=== PATIENT | female | born 1975 | race Caucasian/White ===

== ENCOUNTER → 2021-02-24 11:12 | Outpatient (CLI) | payer OTHER, SELFPAY ==
--- NOTE | ~2021-02-24 | XR_ITS ---
XR lumbar spine min 4V DATE: 02/24/2021 11:31 INDICATION: Low back pain TECHNIQUE: AP, lateral, coned lateral lumbosacral and bilateral oblique views COMPARISON: None FINDINGS: Incidentally noted is an IUD overlying the pelvis. No fracture, spondylolysis, spondylolisthesis or bone destruction of the lumbar spine. There is mild to moderate degenerative disc disease at L3-4. The remaining lumbar and lumbosacral spa gala are well preserved. The sacroiliac joints appear normal. IMPRESSION: Mild/moderate degenerative disc disease at L3-4 Reviewed, dictated and finalized at location B.
== END ==
PROVIDERS: PCP Family Medicine; Visit Provider Family Medicine
DX: M54.5 Low back pain (principal); G89.29 Other chronic pain; M51.36 Other intervertebral disc degeneration, lumbar region
CPT/HCPCS: 72110

== ENCOUNTER → 2021-10-15 14:49 | Outpatient (CLI) | payer OTHER, SELFPAY ==
--- NOTE | ~2021-10-15 | MM_ITS ---
EXAMINATION: MM screening hero BI w pauline HISTORY: Screening mammogram TECHNIQUE: Craniocaudal and mediolateral oblique 3-D tomosynthesis images were obtained and synthetic 2-D images were generated. CAD analysis was submitted and interpreted. COMPARISON: 12/28/2018 bilateral screening mammogram BREAST PARENCHYMAL COMPOSITION: The breasts are heterogeneously dense, which may obscure small masses . FINDINGS: There is no evidence of suspicious mass, calcification, or architectural distortion to sugg est malignancy in either breast. There has been no suspicious interval change. IMPRESSION: 1. No mammographic evidence of malignancy. 2. Recommend routine screening mammography in one year. BI-RADS Category 1: Negative Reviewed, dictated and finalized at location A.
== END ==
PROVIDERS: Visit Provider Nurse Practitioner Obstetrics & Gynecology
DX: Z12.31 Encounter for screening mammogram for malignant neoplasm of breast (principal)
CPT/HCPCS: 77063; 77067

== ENCOUNTER → 2023-04-27 16:04 | Outpatient (CLI) | payer OTHER, SELFPAY ==
--- NOTE | ~2023-04-27 | MM_ITS ---
EXAMINATION: MM screening hero BI w pauline HISTORY: Screening mammogram TECHNIQUE: Craniocaudal and mediolateral oblique 3-D tomosynthesis images were obtained and synthetic 2-D images were generated. CAD analysis was submitted and interpreted. COMPARISON: 10/15/2021, 01/12/2019 BREAST PARENCHYMAL COMPOSITION:The breasts are heterogeneously dense, which may obscure small masses. FINDINGS: No suspicious mass, calcification, or architectural distortion are identified in either al ast to suggest malignancy. There has been no suspicious interval change. IMPRESSION: No mammographic evidence of malignancy. Recommend routine screening mammography in one year. BI-RADS Category 1: Negative Reviewed, dictated and finalized at location .
== END ==
PROVIDERS: PCP Nurse Practitioner Obstetrics & Gynecology; Visit Provider Nurse Practitioner Obstetrics & Gynecology
DX: Z12.31 Encounter for screening mammogram for malignant neoplasm of breast (principal)
CPT/HCPCS: 77063; 77067

== ENCOUNTER 2024-05-01 15:22 | Outpatient (CLI) | payer OTHER, SELFPAY ==
--- NOTE | ~2024-05-01 | MM_ITS ---
EXAMINATION: MM screening hero BI w pauline HISTORY: Screening TECHNIQUE: Craniocaudal and mediolateral oblique 3-D tomosynthesis images were obtained and synthetic 2-D images were generated. CAD analysis was submitted and interpreted. COMPARISON: Comparison to multiple prior studies sequentially, with oldest reviewed study dated 10/15. BREAST PARENCHYMAL COMPOSITION: Not dense: There are scattered areas of fibroglandular density. FINDINGS: There is no evidence of suspicious mass, calcification, or architectural distortion to sugg est malignancy in either breast. There has been no suspicious interval change. IMPRESSION: 1. No mammographic evidence of malignancy. 2. Recommend routine screening mammography in one year. BI-RADS Category 1: Negative. Reviewed, dictated and finalized at location B.
== END 2024-05-01 15:23 | disposition home or self-care (01) ==
PROVIDERS: PCP Obstetrics & Gynecology; Visit Provider Obstetrics & Gynecology
DX: Z12.31 Encounter for screening mammogram for malignant neoplasm of breast (principal)
CPT/HCPCS: 77063; 77067

== ENCOUNTER 2024-09-11 01:43 | Day surgery (SDC) | payer OTHER, SELFPAY ==
[2024-08-25 15:02] VITALS: BMI 28.4
--- OUTSIDE RECORDS SUMMARY | 2024-09-11 01:46 | XMS_ITS | Clinical Summary ---
Author Organization [facility] Address [address] [place] [address] Care Team Providers Care Patient Transporter Name Role Phone Favio Stafford MD Primary Care Provider [phone] Source Comments [facility],non-owned Affiliates and Associated Physician Practices is amultiple site organization consisting of ambulatory clinics and hospital sitesin [place], [place], [place] and [place]. This disclosure is being madepursuant to the Care Everywhere program and may not contain all information available regarding this patient. Last updated 18.[facility] Allergies Active Allergy Reactions Criticality Noted Date Comments Penicillins Rash Medium 10/04/2018 Medications * Be aware that medications may not be up to date on this document. Alwaysverify current medications with the patient. Medication Sig Dispensed Refills Start Date End Date Status HYDRALAZINE HCL PO Active LEVOTHYROXINE SODIUM PO A ctive ATORVASTATIN CALCIUM PO A ctive Nebivolol HCl (BYSTOLIC PO) Active LOSARTAN POTASSIUM PO Act jae Social History Tobacco Use Types Packs/Day Years Used Date Smoking Tobacco: Never Smokeless Tobacco: Never Tobacco Cessation:Counseling Given: Yes Sex and Gender Information Value Date Recorded Sex Assigned at Not on file Gender Identity Not on file Sexual Orientation Not on file Last Filed Vital Signs Vital Sign Reading Time Taken Comments Blood Pressure 134/78 10/04/2018 12:06 PM CDT Pulse 61 10/04/2018 12:06 PM CDT Temperature 36.7 C (98.1 F) 10/04/2018 12:06 PM CDT Respiratory Rate 16 10/04/2018 12:06 PM CDT Oxygen Saturation 98% 10/04/2018 12:06 PM CDT Inhaled Oxygen Concentration - - Weight 74.8 kg (165 lb) 10/04/2018 12:06 PM CDT Height 167.6 cm (5' 6 ) 10/04/2018 12:06 PM CDT Body Mass Index 26.63 10/04/2018 12:06 PM CDT Plan of Treatment Health Maintenance Due Date Last Done Comments COLOGUARD (AGES 45-75) - COL ON CA SCREENING 1974 COLON MONITORING 1974 COLONOSCOPY - COLON CA SCREENING 1974 CT COLONOGRAPHY - COLON CA SCREENING 1974 Colorectal Cancer Screening 1974 FIT - COLON CA SCREENING 1974 FLEX SIG - COLON CA SCREENING 1974 MAMMOGRAM 1974 PAP SMEAR 1974 HIV SCREENING 1989 HEPATITIS C SCREENING 05/23/1992 DTAP/TDAP/TD VACCINES (1 - Tdap) 1993 HEPATITIS B VACCINE (1 of 3 - 19+ 3-dose series) 1993 SCREENING FOR DIABETES 10/04/2018 COVID-19 VACCINE (1 - 2023-2 5 season) 2024 INFLUENZA VACCINE (#1) 2024 PNEUMOCOCCAL VACCINE 50+ (1 of 1 - PCV) 2024 ZOSTER VACCINE (1 of 2) 2024 DEPRESSION SCREENING 07/26/2024 HIB VACCINE Aged Out No longer eligi ble based on patient's age to complete this topic HPV VACCINE Aged Out No longer eligi ble based on patient's age to complete this topic MENINGOCOCCAL (Group B) VACCINE Aged Out No longer eligible based on patient's age to complete this topic MENINGOCOCCAL VACCINE Aged Out No alcides [place] eligible based on patient's age to complete this topic PNEUMOCOCCAL VACCINE Aged Out No long er eligible based on patient's age to complete this topic Care Teams Patient Transporter Relationship Specialty Start Date End Date Favio Stafford MD PCP - General Family Medicine 10/04/18
--- OUTSIDE RECORDS SUMMARY | 2024-09-11 01:46 | XMS_ITS | Clinical Summary ---
Author Organization [facility] Address [address] [place] [address] Care Team Providers Care Preparer Making Department Name Role Phone Favio Stafford MD Primary Care Provider [phone] Barb Quinn OT Unavailable [phone] Nabor Mccormack PT Unavailable Unavailable Carlyn Guaman PT Unavailable Unavailable Myra Anderson PT Unavailable UnavailTeena Gifford OT Unavailable Unavailable Bernadette Montiel OT Unavailable Unavailable Júnior Drummond MD Unavailable [phone] Brown Chaudhary MD Unavailable [phone] Allergies Active Allergy Reactions Criticality Noted Date Comments Hydrochlorothiazide Hives Medium 07/27/2017 Amlodipine Rash,Cough Medium 01/20/2018 Penicillins Rash Reaction: Rash, , Medications levothyroxine (SYNTHROID) 112 mcg tabletIndicatio ns:hypothyroidi sm Take 1 tablet (112 mcg total) by mouth daily 8 Active zolpidem (AMBIEN) 10 mg tabletIndicatio ns:Sleep-Onset Insomnia Take 1 tablet (10 mg total) by mouth nightly as needed 5 8 Active biotin 5 mg capsuleIndicati ons:Biotin Deficiency Take 1 capsule (1 tablet total) by mouth daily Active L-THREONINE MISC Active aspirin 81 mg chewable tabletIndicatio ns:acute myocardial infarction Take 1 tablet (81 mg total) by mouth daily 3 07/30/19 28 Active Additional Information Patient taking differently:81 mg oral2 times weekly, Indications: acute myocardial infarction, Reported on 08/11/2024 hydrALAZINE (APRESOLINE) 100 mg tablet TAKE 1 TABLET THREE TIMES A DAY 270 tablet 3 4 Active MAGNESIUM GLYCINATE ORAL Take 400 mg by mouth nightly as needed Patients reported, for sleeping Active nebivoloL (BYSTOLIC) 10 mg tablet TAKE 1 TABLET TWICE A DAY 180 tablet 3 4 Active losartan (COZAAR) 100 mg tablet TAKE 1 TABLET DAILY 90 tablet 3 4 Active atorvastatin (LIPITOR) 20 mg tablet TAKE 1 TABLET DAILY (DOSE INCREASE) 90 tablet 3 4 Active Active Problems Problem Noted Date Diagnosed Date H/O ascending aortic replacement 08/11/2024 Headache disorder 11/25/2023 Assessment & Plan (11/25/2023 1:25 PM CDT): Susie reports a longstanding daily dull headache that can wax and wane in severity throughout the day complicated by chronic fdrg-jud-vjppxcj analgesic use. She denies any migrainous associated symptoms. She denies any previous or current preventative therapies, she would like to avoid medication if possible. Acutely, the patient takes Tylenol multiple times throughout the week. This will temporarily reduce her pain. Patient's specific headache risk factors include disrupted sleep pattern, stress, eye strain, significant cardiovascular history and elevated blood pressures. Plan: Headache diary. Prednisone burst to break current rebound headache. Advised cessation of dikk-qgs-eymksul analgesic use. Discussed supplements to help reduce headache pattern including migrelief. Encouraged adequate water intake, regular exercise, healthy diet, and limiting caffeine intake. Consider massage and acupuncture to help reduce headache pattern. Encouraged adequate blood pressure control. Follow up in 3-4 months. History of CVA (cerebrovascular accident) 2023 Assessment & Plan (11/25/2023 1:25 PM CDT): Susie had an embolic stroke in 2018 during hospitalization for endocarditis. Her symptoms initially consisted of left-sided weakness, poor balance, right vision loss, and speech difficulty. She has made a remarkable recovery but still notes some residual forgetfulness, difficulty with focus, and delayed processing. We reviewed her imaging and workup during her hospitalization, she denies any previous neurology care. 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 She lives an active and healthy lifestyle. She is compliant with her antiplatelet and statin therapy. She does have elevated blood pressures, we discussed findings of possible fibromuscular dysplasia on recent CTA of head and neck. She is seen by a atmospheric scientist. Plan: Continue antiplatelet and statin therapy for secondary stroke prevention. Discussed further workup for blood pressures and fibromuscular dysplasia including vascular or nephrology, patient deferred further workup at this time. Follow up as needed. Aftercare following surgery of the circulatory s ystem 09/10/2022 Stenosis of aorta 07/09/2022 Chest pain 06/06/2022 Assessment & Plan (06/06/2022 3:19 PM SITE SAFETY MANAGER): He had a rather worrisome episode of excruciating chest pain last month. She had been at her usual workout when she developed pain in the neck and left arm that was quite severe. It lasted 10 minutes and then resolved. She is had a follow-up echocardiogram and CT angiogram without significant changes. The symptoms did not sound ischemic, and she is certainly worked out heart since that time without recurrent chest pain. She does have a follow-up visit with Dr. Chaudhary planned, but will try to move it up to get his opinion as well. PFO (patent foramen ovale) 06/02/2022 Assessment & Plan (01/13/2024 3:33 PM CDT): Prior PFO closure in 2018. Assessment & Plan (01/01/2023 11:15 AM CDT): Not an issue at this time. Had PFO closure in 2018. Assessment & Plan (09/27/2022 6:34 PM SITE SAFETY MANAGER): Not an issue at this time. Assessment & Plan (06/06/2022 3:21 PM SITE SAFETY MANAGER): No symptoms. Closed. COVID-19 virus infection 11/20/2019 Cough 11/17/2019 Assessment & Plan (11/17/2019 2:36 PM CDT): COVID +PCR viral panel on chest x-ray. Gvxq-lgq-duyydip DayQuil or Mucinex for supportive care. Monitor daily temperatures. Discussed that if her chest x-rays questionable at antibiotics & if her testing is + will add her to the COVID -19 home monitoring. Aftercare following surgery 01/20/2018 Meningitis 11/26/2017 Bacteremia 11/26/2017 Hypothyroidism 11/26/2017 Normocytic anemia 11/26/2017 Thoracic aortic aneurysm without rupture 016 Overview (10/31/2016): Thoracic aortic aneurysm without rupture S/P AVR (aortic valve replacement) and aortoplas ty 07/03/2015 Overview (10/29/2016): S/P AVR Assessment & Plan (01/13/2024 3:32 PM CDT): Overall, doing very well. She is aware of uses endocarditis prophylaxis. We again reviewed her CT images of her aorta. Assessment & Plan (01/01/2023 11:13 AM CDT): Reviewed last CT images with patient. BP control will be important. She has FU CT and Dr Chaudhary appt in Jul 2023. She is aware of and uses SBE prophylaxis. Assessment & Plan (09/27/2022 6:33 PM SITE SAFETY MANAGER): He is doing remarkably well after her 3rd heart operation in June 2022. She is currently exercising fairly vigorously at home, including some punching bag workout (kickboxing). We discussed exercise principles in patients with aortic disease in the fact that she should avoid intense isometric activities, such as punching bag. We told her to emphasize cardio workouts instead. She knows to limit her activities for at least 6 months post surgery but thereafter as well. Assessment & Plan (06/06/2022 3:20 PM SITE SAFETY MANAGER): Her AVR has been normal on recent echocardiograms. She does have rather significant angulation in the ascending aorta as well as a loud murmur. We did also measure higher velocities in this region with Doppler. She is aware of an uses endocarditis prophylaxis as indicated. Aortic valve insufficiency 06/27/2014 Overview (10/29/2016): Aortic regurgitation Hyperlipidemia LDL goal <100 07/11/2013 Overview (10/29/2016): Hyperlipidemia Assessment & Plan (01/13/2024 3:32 PM CDT): The LDL is well controlled on current pharmacotherapy which will be continued. Assessment & Plan (01/01/2023 11:09 AM CDT): The blood pressure has been under good control on current medications which will be continued. The patient is aware of the need for continued monitoring. Monitor home BP/Keep diary and bring to OV. Call if average BP >140/90 mmHg. Low sodium diet. Assessment & Plan (09/27/2022 6:33 PM SITE SAFETY MANAGER): Her LDL has been at goal on Lipitor which he will continue. Assessment & Plan (06/06/2022 3:20 PM SITE SAFETY MANAGER): Her LDL has been at goal on atorvastatin which she will continue. Essential hypertension 07/11/2013 Overview (10/29/2016): Hypertension Assessment & Plan (01/13/2024 3:33 PM CDT): The blood pressure has been under good control on current medications which will be continued. The patient is aware of the need for continued monitoring. Monitor home BP/Keep diary and bring to OV. Call if average BP >140/90 mmHg. Low sodium diet. Her blood pressures actually been well controlled. We will try to cardio hydralazine down to 100 mg twice daily. Assessment & Plan (01/01/2023 11:08 AM CDT): Some OCONNOR attributed to Micardis. Will switch back to losartan 100 mg every day. The blood pressure has been under good control on current medications which will be continued. The patient is aware of the need for continued monitoring. Monitor home BP/Keep diary and bring to OV. Call if average BP >140/90 mmHg. Low sodium diet. Assessment & Plan (09/27/2022 6:33 PM SITE SAFETY MANAGER): Her blood pressures been under good control with nebivolol, Micardis, and hydralazine. The patient is aware of the need for continued monitoring. Monitor home BP/Keep diary and bring to OV. Call if average BP >140/90 mmHg. Low sodium diet. Assessment & Plan (06/06/2022 3:22 PM SITE SAFETY MANAGER): Her blood pressures been under reasonably good control on current medications, including a beta-megan, ARB, and hydralazine, which she will continue. We will add low-dose diuretic in the form of HCTZ 12.5 mg daily to her regimen. The patient is aware of the need for continued monitoring. Monitor home BP/Keep diary and bring to OV. Call if average BP >140/90 mmHg. Low sodium diet. H/O aortic root repair 08/09/2012 Overview (10/29/2016): Hx of aortic valve replacement Aortic root dilatation (CMS/HCC) 08/08/2012 Overview (10/28/2016): Dilated aortic root Coronary arteriosclerosis in [place] artery 08/08 Overview (10/29/2016): CAD in [place] artery Endocarditis of aortic valve Intracranial hemorrhage Encounters Date Type Department Care Team Description 08/11/2024 9:30 AM SITE SAFETY MANAGER Telemedicine Cardiovascular and Thoracic Surgery [address] [facility] [address] [place] [address] Raisa Hurt NP S/P AVR (aortic valve replacement) and aortoplasty (Primary Dx); H/O ascending aortic replacement; H/O aortic root repair 07/27/2024 11:33 AM SITE SAFETY MANAGER - 07/27/2024 11:59 PM SITE SAFETY MANAGER Hospital Encounter [facility] - Imaging [address] [place] [address] S/P AVR (aortic valve replacement) and aortoplasty; S/P ascending aortic aneurysm repair; 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 (HCC); Status post combined aortic root and valve replacement using stentless bioprosthetic aortic valve Discharge Disposition: Discharge to home or self care from Last 3 Months Surgical History Surgery Date Site/Laterality Comments OTHER SURGICAL HISTORY 07/26/2009 - 07/25/2010 : Valve Replacement OTHER SURGICAL HISTORY aortic regurgitation, aneurysm of ascending aortic: replacement of ascending aorta and AVR allograft CARDIAC CATHETERIZATION CARDIAC VALVE REPLACEMENT 11/26/2017 AORTIC VALVE REPLACEMENT 07/26/2017 - 07/25/2018 redo AVR AORTIC VALVE REPLACEMENT 07/26/2009 - 07/25/2010 AORTIC VALVE SURGERY 07/29/2022 redo redo hemiarch and ascending replacements Medical History Medical History Date Comments Hypertension Hypertension Cardiovascular disease Coronary Artery Disease Hyperlipidemia Hyperlipidemia Heart valve disease Cardiac valv ular disease Hx Other Medical aortic regurgit ation, aneurysm of ascending aorti; Comments: NJN 06/27/2014 - Endocarditis Heart disease Stroke (HCC) Dec 06 2017 Family History Medical History Relation Name Comments Hypertension Father Stewart Thomas Hypertension; / Hypertension; Other Maternal Grandmother Pseudoa neurysm; Cause of : Pseudoaneurysm Hypertension Mother Baljinder Coburn Hypertension; Hypertension Mother's Sister 2 Mac Papa Sudden Mother's Sister 2 Mac Papa Sudden Eliza th; Relation Name Status Comments Father Stewart Thomas Alive Maternal Grandmother Mother Baljinder Coburn Alive Mother's Sister 1 Alive Mother's Sister 2 Mac Papa Social History Tobacco Use Types Packs/Day Years Used Date Smoking Tobacco: Never Cigarettes Smokeless Tobacco: Never Tobacco Cessation:Counseling Given: Not Answered Alcohol Use Standard Drinks/Week Comments Yes 0 (1 standard drink = 0.6 oz pur e alcohol) OASIS D0700: Social Isolation Answer Da te Recorded Frequency of experiencing loneliness or isolatio n Never 08/06/2022 Social Connection and Isolat ion Panel [NHANES] Answer Date Recorded In a typical week, how many times do you talk on the phone with family, friends, or neighbors? More than three times a week 08/03/2022 How often do you get togethe r with friends or relatives? More than three times a week 08/03/2022 How often do you attend [facility] or mandaen services? 1 to 4 times per year 08/03/2022 Do you belong to any clubs o r organizations such as advent groups, unions, fraternal or athletic groups, or school groups? Yes 08/03/2022 How often do you attend meet ings of the clubs or organizations you belong to? 1 to 4 times per year 08/03/2022 Are you , , di vorced, , never , or living with a partner? 08/03/2022 AUDIT-C Answer Date Recorded Q1: How often do you have a drink containing alc ohol? Monthly or less 11/24/2023 Average Number of Drinks Not on file 024 Frequency of Binge Drinking Not on file 07/2023 Overall Financial Resource Strain (CARDIA) Answe r Date Recorded How hard is it for you to pa y for the very basics like food, housing, medical care, and heating? Not very hard 08/03/2022 Hunger Vital Sign Answer Date Recorded Within the past 12 months, y ou worried that your food would run out before you got the money to buy more. Never true 08/03/19 23 Within the past 12 months, t he food you bought just didn't last and you didn't have money to get more. Never true 08/03/2022 PRAPARE - Transportation Answer Date Re corded In the past 12 months, has l ack of transportation kept you from medical appointments or from getting medications? No 03/2023 In the past 12 months, has l ack of transportation kept you from meetings, work, or from getting things needed for daily living? 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 Not on file Not on file Not on file Obstetrics History Last Filed Vital Signs Vital Sign Reading Time Taken Comments Blood Pressure 136/76 01/07/2024 11:35 AM CDT Pulse 59 01/07/2024 11:35 AM CDT Temperature 36.1 C (97 F) 09/09/2022 9:23 AM SITE SAFETY MANAGER Respiratory Rate 16 11/24/2023 12:39 PM CDT Oxygen Saturation 98% 01/07/2024 11:35 AM CDT Inhaled Oxygen Concentration - - Weight 78.9 kg (174 lb) 01/07/2024 11:35 AM CDT Height 167.6 cm (5' 6 ) 01/07/2024 11:35 AM CDT Body Mass Index 28.08 01/07/2024 11:35 AM CDT Plan of Treatment Health Maintenance Due Date Last Done Comments Cervical Cancer Screening 1974 Colon Cancer Screening-Colonoscopy 1974 Depression Screening 1974 Hepatitis C Screening 1974 DTaP/Tdap/Td Vaccine (1 - Tdap) 1985 Hepatitis B Screening 1992 Regular Well Visit/Exam 18-64 1992 Covid-19 Vaccine (3 - 2023-2 5 season) 2024 10/12/2020, 09/14/2020 Influenza Vaccine (#1) 2024 Breast Cancer Screening-Mammogram 04/28/2024 04/28/2023, 10/15/2021 Zoster Vaccine (1 of 2) 2024 Pneumococcal vaccine <65 Aged Out No longer eligible based on patient's age to complete this topic Medical Devices Implanted Type Area Tobacco Sample Puller Device Identifier Shelf Expiration Date Model / Serial / Lot Graft Cardiovascular Gelweave Valsalva Gelatin Hydrogel L24 Mm Od28 Mm Thoracic Aorta Woven - [id number] - [id number] Implanted:Qty: 1 on 11/26/2017 by Brown Chaudhary MD at [facility] Graft N/A: Aorta Vascutek Terumo 09/22/2020 [id number] P / [id number] / [id number] Terumo Cardio Vascular Gelweave Od6 Mm L30 Cm Suture Retention Unique Hydrolyzable Abdomen Thorax Straight Graft Cardiovascular Gelatin Polyester Woven [id number] - [id number] - [id number] Implanted:Qty: 1 on 07/29/2022 by Brown Chaudhary MD at [facility] Graft Right: Axillary Artery Terumo Cardio Vascular 02/22/2025 [id number] / [id number] / [id number] Description:Right axillary c annulation. Terumo Cardio Vascular Gelweave 28mm 30cm Suture Retention Unique Hydrolyzable Abdomen [id number] - [id number] - [id number] Implanted:Qty: 1 on 07/29/2022 by Brown Chaudhary MD at [facility] Graft N/A: Aorta Terumo Cardio Vascular 12/23/2024 [id number] / [id number] / [id number] Valve Aortic Maegan s Perimount Magna Ease Pericardial Low Profile Od25 Mm Bioprosthesis Thermafix Process Stent Base Aortotomy Closure - [id number] - [id number] Implanted:Qty: 1 on 11/26/2017 by Brown Chaudhary MD at [facility] Prosthetic Valve N/A: Aortic Valve Adam Lifesciences 09/01/2021 [id number] 5MM / [id number] / [employer] Device Closure Fibertape Sternal Cerclage Blunt Needle Ar-[id number] - Sn/A - [id number] Implanted:Qty: 1 on 07/29/2022 by Brown Chaudhary MD at [facility] Wire N/A: Sternum Ar[employer]rex Inc 04/24/2027 [id number] / N/A / [id number] Wire Pacing Luis Angel/Wire Ricardo Stainless Steel 2-0 26 Mm 1/2 [place] Curve L61 Cm L89 Mm Intramyocardial Ventricle M25 Style Temporary Snap Off Needle [facility] - [id number] Implanted:Qty: 1 on 11/26/2017 by Brown Chaudhary MD at [facility] [employer] Sergei [id number] / / Wire Pacing Luis Angel/Wire Ricardo Stainless Steel 2-0 26 Mm 1/2 [place] Curve L61 Cm L89 Mm Intramyocardial Ventricle M25 Style Temporary Snap Off Needle [place] [facility] - [id number] Implanted:Qty: 1 on 11/26/2017 by Brown Chaudhary MD at [facility] [employer] [id number] / / Explanted Type Area Tobacco Sample Puller Device Identifier Shelf Expiration Date Model / Serial / Lot [place] [employer] Horizon Ligate Triangulate Cross Section Wire Large Chevron Heart Latex Free [id number] - Sn/A - [id number] Explanted:Qty: 1 on 07/29/2022 by Brown Chaudhary MD at [facility] Clip Right: Sternum [employer] [id number] / N/A / [employer] Weck Horizon 6 Cartridge Ligate Triangulate Cross Section Heart [id number] - Sn/A - [id number] Explanted:Qty: 1 on 07/29/2022 by Brown Chaudhary MD at [facility] Clip Right: Sternum [employer] Inc [id number] / N/A / Procedures Procedure Name Priority Date/Time Associated Diagnosis Comments CTA CHEST ABDOMEN PELVIS Schedule Routine, Read Routine (OP Routine) 07/27/2024 12:36 PM SITE SAFETY MANAGER S/P AVR (aortic valve replacement) and aortoplasty S/P ascending aortic aneurysm repair 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 Electronically signed by: iVrgil Mims M.D. Narrative 07/27/2024 1:15 PM SITE SAFETY MANAGER EXAMINATION: CTA CHEST ABDOMEN PELVIS HISTORY: Status post aortic valve and aortic root replacement with repeat ascending aorta and susan-arch replacement 07/29/2022. TECHNIQUE: CT angiography of the chest was performed prior to and following the uneventful intravenous administration of 94 ml Optiray-350. Vascular 3D images were generated on a dedicated workstation and also interpreted. COMPARISON: CTA chest dated 08/06/2023 FINDINGS: VASCULAR FINDINGS: Postsurgical changes of median sternotomy for aortic valve replacement and ascending aorta and susan-arch repair. There is unchanged soft tissue surrounding the aortic graft compatible with postsurgical change. No fluid collection. No pseudoaneurysm. No aortic dissection. Aortic measurements: Sinotubular junction: 3.2 x 3.4 cm Maximum ascending aortic diameter at the level of the main pulmonary artery: 3.1 x 3.3 cm Proximal descending thoracic aorta: 2.3 x 2.4 cm NON-VASCULAR FINDINGS: Lungs are clear. No pneumothorax or pleural effusion. No supraclavicular, axillary, mediastinal or hilar lymphadenopathy. Unchanged mild cardiomegaly. No pericardial effusion. Imaged upper abdomen demonstrates a punctate nonobstructive left renal stone. No suspicious osseous lesion Procedure Note Virgil Mims MD - 07/27/2024 EXAMINATION: CTA CHEST ABDOMEN PELVIS HISTORY: Status post aortic valve and aortic root replacement with repeat ascending aorta and susan-arch replacement 07/29/2022. TECHNIQUE: CT angiography of the chest was performed prior to and following the uneventful intravenous administration of 94 ml Optiray-350. Vascular 3D images were generated on a dedicated workstation and also interpreted. COMPARISON: CTA chest dated 08/06/2023 FINDINGS: VASCULAR FINDINGS: Postsurgical changes of median sternotomy for aortic valve replacement and ascending aorta and susan-arch repair. There is unchanged soft tissue surrounding the aortic graft compatible with postsurgical change. No fluid collection. No pseudoaneurysm. No aortic dissection. Aortic measurements: Sinotubular junction: 3.2 x 3.4 cm Maximum ascending aortic diameter at the level of the main pulmonary artery: 3.1 x 3.3 cm Proximal descending thoracic aorta: 2.3 x 2.4 cm NON-VASCULAR FINDINGS: Lungs are clear. No pneumothorax or pleural effusion. No supraclavicular, axillary, mediastinal or hilar lymphadenopathy. Unchanged mild cardiomegaly. No pericardial effusion. Imaged upper abdomen demonstrates a punctate nonobstructive left renal stone. No suspicious osseous lesion IMPRESSION: Stable postsurgical changes of aortic valve replacement with ascending aorta and susan-arch repair. Electronically signed by: Virgil Mims M.D. Raisa Hurt NP IMG CT PROCEDURES Final R esult from Last 3 Months Insurance CHOICE PLUS [facility] CHOICE PLUS R [facility] CHOICE PLUS [facility]AN [facility] HMO/PPO Address: [address] [place] [address] Advance Directives For more information, please contact: [phone] * Full Code (Latest Code Status on File) Date Activated Date Inactivated Comments 07/29/2022 5:01 PM 08/04/2022 10:12 PM * Full Code Date Activated Date Inactivated Comments 01/04/2018 10:09 PM 07/29/2022 5:59 AM * Full Code Date Activated Date Inactivated Comments 12/08/2017 5:52 PM 01/01/2018 10:45 AM * Full Code Date Activated Date Inactivated Comments 11/26/2017 10:36 PM 12/08/2017 5:19 PM * Full Code Date Activated Date Inactivated Comments 11/25/2017 9:18 PM 11/26/2017 10:36 PM Care Teams Preparer Making Department Relationship Specialty Start Date End Date Favio Stafford MD [address] [address] PCP - General 06/28/13 Barb Quinn, OT [address] [facility] [address] [place] [address] Occupational Therapist Occupational Therapy 01/11/18 Nabor Mccormack, PT Physical Therapist Physical Therapy 01/11/18 Carlyn Guaman, PT Physical Therapist Physical Therapy 01/21/18 Myra Anderson, PT Physical Therapist Physical Therapy 01/25/18 Teena Lombardi, OT Occupational Therapist Occupational Therapy 02/10/18 Bernadette Montiel, OT Occupational Therapist Occupational Therapy 02/14/18 Júnior Drummond MD [address] [place] [address] Referring Physician Cardiology 06/29/23 Brown Chaudhary MD [address] [place] [address] Consulting Physician Cardiothoracic Surgery 06/29/23
--- OUTSIDE RECORDS SUMMARY | 2024-09-11 01:46 | XMS_ITS | Encounter Summary ---
Author Organization [facility] Address [address] [place] [address] Care Team Providers Care Tombstone Erector Helper Name Role Phone Favio Stafford MD Primary Care Provider [phone] Encounter Details Date Type Department Care Team (Late st Contact Info) Description 10/29/2021 Lab Requisition [facility] [address] [facility] [place] [address] Emma Howard DO [address] [facility] [address] [place] [address] Social History Tobacco Use Types Packs/Day Years Used Date Smoking Tobacco: Never Smokeless Tobacco: Never Sex and Gender Information Value Date Recorded Sex Assigned at Not on file Gender Identity Not on file Sexual Orientation Not on file documented as of this encounter Plan of Treatment Not on file documented as of this encounter Procedures Procedure Name Priority Date/Time Associated Diagnosis Comments DERMATOPATHOLOGY Routine 10/29/2021 12:0 0 AM CDT documented in this encounter Results * DERMATOPATHOLOGY (10/29/2021 12:00 AM CDT) Case Report Dermatopathology Report Case: [id number] Authorizing Provider: Emma Howard DO Collected: 10/29/2021 12:00 AM Ordering Location: [facility] Received: 10/29/2021 03:55 PM Pathologist: Fahad Morocho MD Specimens: A) - Skin, left superior back B) - Skin, left inferior back 10:12 AM [facility] Final Diagnosis Specimen A. SKIN, left superior back: INTRADERMAL MELANOCYTIC NEVUS (D22.5) Specimen B. SKIN, left inferior back: INTRADERMAL MELANOCYTIC NEVUS (D22.5) 10:12 AM [facility]MAT[facility] Clinical History A-B: Nevus, irritated. 10:12 AM T DERMATOPATHOLOGY LABORATORY Gross Description Specimen A: Received is one formalin filled container labeled with the patient's name and designated left superior back. The specimen consists of a shave biopsy measuring [id number]. Jar 0. Specimen B: Received is one formalin filled container labeled with the patient's name and designated left inferior back. The specimen consists of a shave biopsy measuring [id number]. Jar 0. 10:12 AM [facility] DERMATOPATHOLOGY [facility]ORATORY Microscopic Description Specimen A. SKIN, left superior back: There are nests of cytologically bland melanocytes within the dermis that mature with depth. Specimen B. SKIN, left inferior back: There are nests of cytologically bland melanocytes within the dermis that mature with depth. 10:12 AM [facility] DERMAT[facility]ATH[facility]ORATORY Disclaimer An external and internal positive and negative controls are appropriate for the histochemical, immunohistochemical and immunofluorescence stain(s) in this case (if any), except where stated explicitly. The performance characteristics of the stain(s) cited in this report were developed and its performance characteristic determined by the Dermatopathology Laboratory at [facility], directed by Dr. Lloyd Morocho. These tests need not be, and therefore are not, approved by the [place] Food and Drug Administration. The tests are used for clinical purposes. Billing Codes Specimen Charges Stain Charges 83735 66143 1 1 2 10:12 AM CDT DERMATOPATHOLOGY LABORATORY Embedded Images 10:12 AM T DERMATOPATHOLOGY LABORATORY Pathology/Cytology TISSUE SPECIMEN FROM SKIN / Unknown 10/29/2021 10/29/2021 3:55 PM CDT Miscellaneous samples (specimen) TISSUE SPECIMEN FROM SKIN / Unknown 10/29/2021 10/29/2021 3:55 PM CDT Emma Howard DO LAB - PATHOLOGY/C YTOLOGY ORDERABLES DERMATOPATHOLOGY LABORATORY [facility] - Department of Dermatology [facility] [address] [place] [address], [address] [phone] documented in this encounter Visit Diagnoses Not on filedocumented in this encounter Care Teams Tombstone Erector Helper Relationship Specialty Start Date End Date Favio Stafford MD PCP - General Family Medicine 10/04/18 documented as of this encounter
--- OUTSIDE RECORDS SUMMARY | 2024-09-11 01:46 | XMS_ITS | Referral Summary ---
Author Organization [facility] Address [facility] [place] [address] Care Team Providers Care Accounts Payable Representative Name Role Phone Favio Stafford MD Primary Care Provider [phone] Barb Quinn OT Unavailable [phone] Nabor Mccormack PT Unavailable Unavailable Carlyn Guaman PT Unavailable Unavailable Myra Anderson PT Unavailable UnavailTeena Gifford OT Unavailable Unavailable Bernadette Montiel OT Unavailable Unavailable Júnior Drummond MD Unavailable [phone] Brown Chaudhary MD Unavailable [phone] Encounters Date Type Department Care Team Description 08/11/2024 9:30 AM INTERNET ARCHITECT Telemedicine Cardiovascular and Thoracic Surgery [address] [facility] [address] [place] [address] Raisa Hurt NP S/P AVR (aortic valve replacement) and aortoplasty (Primary Dx); H/O ascending aortic replacement; H/O aortic root repair 07/27/2024 11:33 AM INTERNET ARCHITECT - 07/27/2024 11:59 PM INTERNET ARCHITECT Hospital Encounter [facility] [address] [place] [address] S/P AVR (aortic valve replacement) and aortoplasty; S/P ascending aortic aneurysm repair; 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 She denies any migrainous associated [...] break current rebound headache. Advised cessation of ifql-smv-qfharvx analgesic use. Discussed supplements to help reduce [...] and neck. She is seen by a manager java. Plan: Continue antiplatelet and statin therapy for secondary stroke prevention. Discussed further workup for blood pressures and fibromuscular dysplasia including vascular or nephrology, patient deferred further workup at this time. Follow up as needed. Aftercare following surgery of the circulatory s ystem 09/10/2022 Stenosis of aorta 07/09/2022 Chest pain 06/06/2022 Assessment & Plan (06/06/2022 3:19 PM INTERNET ARCHITECT): He had a rather worrisome episode of [...] 2018. Assessment & Plan (09/27/2022 6:34 PM INTERNET ARCHITECT): Not an issue at this time. Assessment & Plan (06/06/2022 3:21 PM INTERNET ARCHITECT): No symptoms. Closed. COVID-19 virus infection 11/20/2019 Cough 11/17/2019 Assessment & Plan (11/17/2019 2:36 PM CDT): COVID +PCR viral panel on chest x-ray. Laaq-rui-pxtloyr DayQuil or Mucinex for supportive care. Monitor [...] prophylaxis. Assessment & Plan (09/27/2022 6:33 PM INTERNET ARCHITECT): He is doing remarkably well after her [...] well. Assessment & Plan (06/06/2022 3:20 PM INTERNET ARCHITECT): Her AVR has been normal on recent [...] diet. Assessment & Plan (09/27/2022 6:33 PM INTERNET ARCHITECT): Her LDL has been at goal on Lipitor which he will continue. Assessment & Plan (06/06/2022 3:20 PM INTERNET ARCHITECT): Her LDL has been at goal on [...] diet. Assessment & Plan (09/27/2022 6:33 PM INTERNET ARCHITECT): Her blood pressures been under good control with nebivolol, Micardis, and hydralazine. The patient is aware of the need for continued monitoring. Monitor home BP/Keep diary and bring to OV. Call if average BP >140/90 mmHg. Low sodium diet. Assessment & Plan (06/06/2022 3:22 PM INTERNET ARCHITECT): Her blood pressures been under reasonably good [...] of aortic valve replacement Aortic root dilatation ([facility]) 08/08/2012 Overview (10/28/2016): Dilated aortic root Coronary arteriosclerosis in hopi artery 08/08 Overview (10/29/2016): CAD in hopi artery Endocarditis of aortic valve Intracranial hemorrhage Social History Tobacco Use Types Packs/Day Years [...] week 08/03/2022 How often do you attend chur ch or restoration services? 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 Not on file Not on file Last Filed Vital Signs Vital Sign Reading Time Taken Comments Blood Pressure 136/76 01/07/2024 11:35 AM CDT Pulse 59 01/07/2024 11:35 AM CDT Temperature 36.1 C (97 F) 09/09/2022 9:23 AM INTERNET ARCHITECT Respiratory Rate 16 11/24/2023 12:39 PM CDT Oxygen Saturation 98% 01/07/2024 11:35 AM CDT Inhaled Oxygen Concentration - - Weight 78.9 kg (174 lb) 01/07/2024 11:35 AM CDT Height 167.6 cm (5' 6 ) 01/07/2024 11:35 AM CDT Body Mass Index 28.08 01/07/2024 11:35 AM CDT Plan of Treatment Not on file Medical Devices Implanted Type Area Acid Dipper Device Identifier Shelf Expiration Date Model / Serial / Lot Graft Cardiovascular Gelweave Valsalva Gelatin Hydrogel L24 Mm Od28 Mm Thoracic Aorta Woven - [id number] - [id number] Implanted:Qty: 1 on 11/26/2017 by Brown Chaudhary MD at [facility] Graft N/A: Aorta Vascutek Terumo 09/22/2020 [id number] P / [id number] / [id number] Terumo Cardio Vascular Gelweave Od6 Mm L30 Cm Suture Retention Unique Hydrolyzable Abdomen Thorax Straight Graft Cardiovascular Gelatin Polyester Woven [id number] - [id number] - [id number] Implanted:Qty: 1 on 07/29/2022 by Brown Chaudhary MD at [facility] Graft Right: Axillary Artery Terumo Cardio Vascular 02/22/2025 [id number] / [id number] / [id number] Description:Right axillary c annulation. Terumo Cardio Vascular Gelweave 28mm 30cm Suture Retention Unique Hydrolyzable Abdomen [id number] - [id number] - [id number] Implanted:Qty: 1 on 07/29/2022 by Brown Chaudhary MD at [facility] Graft N/A: Aorta Terumo Cardio Vascular 12/23/2024 [id number] / [id number] / [id number] Valve Aortic Maegan s Perimount Magna Ease Pericardial Low Profile Od25 Mm Bioprosthesis Thermafix Process Stent Base Aortotomy Closure - [id number] - [id number] Implanted:Qty: 1 on 11/26/2017 by Brown Chaudhary MD at [facility] Prosthetic Valve N/A: Aortic Valve Adam Lifesciences 09/01/2021 [id number] / [id number] / [employer] Device Closure Fibertape Sternal Cerclage Blunt Needle Ar-[id number] - Sn/A - [id number] Implanted:Qty: 1 on 07/29/2022 by Brown Chaudhary MD at [facility] Wire N/A: Sternum Ar[employer]rex Inc 04/24/2027 [id number] / N/A / [id number] Wire Pacing Luis Angel/Wire Ricardo Stainless Steel 2-0 26 Mm 1/2 Cushing Curve L61 Cm L89 Mm Intramyocardial Ventricle M25 Style Temporary Snap Off Needle [employer] - [id number] Implanted:Qty: 1 on 11/26/2017 by Brown Chaudhary MD at [facility] [employer] Sergei [id number] / / Wire Pacing Luis Angel/Wire Ricardo Stainless Steel 2-0 26 Mm 1/2 Cushing Curve L61 Cm L89 Mm Intramyocardial Ventricle M25 Style Temporary Snap Off Needle [employer]sound - [id number] Implanted:Qty: 1 on 11/26/2017 by Brown Chaudhary MD at [facility] [employer] 025-200 / / Explanted Type Area Acid Dipper Device Identifier Shelf Expiration Date Model / Serial / Lot Teleflex Medical Inc Horizon Ligate Triangulate Cross Section Wire Large Chevron Heart Latex Free [id number] - Sn/A - [id number] Explanted:Qty: 1 on 07/29/2022 by Brown Chaudhary MD at [facility] Clip Right: Sternum [employer] Inc [id number] / N/A / Tele[employer] Weck Horizon 6 Cartridge Ligate Triangulate Cross Section Heart [id number] - Sn/A - [id number] Explanted:Qty: 1 on 07/29/2022 by Brown Chaudhary MD at [facility] Clip Right: Sternum [employer] Inc [id number] / N/A / Procedures Procedure Name Priority Date/Time Associated Diagnosis Comments CTA CHEST ABDOMEN PELVIS Schedule Routine, Read Routine (OP Routine) 07/27/2024 12:36 PM INTERNET ARCHITECT S/P AVR (aortic valve replacement) and aortoplasty S/P ascending aortic aneurysm repair 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 Electronically signed by: Virgil Mims M.D. Narrative 07/27/2024 1:15 PM INTERNET ARCHITECT EXAMINATION: CTA CHEST ABDOMEN PELVIS HISTORY: Status [...] Electronically signed by: Virgil Mims M.D. Raisa Ofelia Hurt PHOTO TECHNICIAN IMG CT PROCEDURES Final R esult from Last 3 Months Insurance [facility] H[facility]/PPO Address: [address] [address] [place] [address] [facility] PLAN [facility] H[facility]/PPO Address: [address] [address] [place] [address] [facility] H[facility]/PPO Address: [address] [address] [place] [address] [facility] H[facility]/PPO Address: [address] [address] [place] [address] [facility] Advance Directives For more information, please contact: [phone] * Full Code (Latest Code Status on [...] 9:18 PM 11/26/2017 10:36 PM Care Teams Accounts Payable Representative Relationship Specialty Start Date End Date Favio Stafford MD [address] [address] PCP - General 06/28/13 Barb Quinn, OT [address] [facility] [address] [place], [place] [id number] Occupational Therapist Occupational Therapy 01/11/18 Nabor Mccormack, PT Physical Therapist Physical Therapy 01/11/18 Carlyn Guaman, PT Physical Therapist Physical Therapy 01/21/18 Myra Anderson, PT Physical Therapist Physical Therapy 01/25/18 Teena Lombardi, OT Occupational Therapist Occupational Therapy 02/10/18 Bernadette Montiel, OT Occupational Therapist Occupational Therapy 02/14/18 Júnior Drummond MD [address] [place], [place] [id number] Referring Physician Cardiology 06/29/23 Brown Chaudhary MD [address] [place], [place] [id number] Consulting Physician Cardiothoracic Surgery 06/29/23
--- OUTSIDE RECORDS SUMMARY | 2024-09-11 01:46 | XMS_ITS | Referral Summary ---
Author Organization [facility] [employer] Address [address] [facility] [place] [address] Care Team Providers Care Speech Therapist Early Intervention Name Role Phone Favio Stafford MD Primary Care Provider [phone] Source Comments [facility],non-owned Affiliates and Associated Physician Practices is amultiple site organization consisting of ambulatory clinics and hospital sitesin [place], [place], [place] and [place]. This disclosure is being madepursuant to the Care Everywhere program and may not contain all information available regarding this patient. Last updated 18.[facility] Allergies Active Allergy Reactions Criticality Noted Date [...] 10/04/2018 12:06 PM CDT Plan of Treatment Not on file Care Teams Speech Therapist Early Intervention Relationship Specialty Start Date End Date Favio Stafford MD PCP - General Family Medicine 10/04/18
--- OUTSIDE RECORDS SUMMARY | 2024-09-11 01:46 | XMS_ITS | Encounter Summary ---
Author Organization [facility] Address [address] [place] [address] Care Team Providers Care Field Sales Agent Name Role Phone Favio Stafford MD Primary Care Provider [phone] Barb Quinn OT Unavailable [phone] Nabor Mccormack PT Unavailable Unavailable Carlyn Guaman PT Unavailable Unavailable Myra Anderson PT Unavailable UnavailTeena Gifford OT Unavailable Unavailable Bernadette Montiel OT Unavailable Unavailable Júnior Drummond MD Unavailable [phone] Brown Chaudhary MD Unavailable [phone] Encounter Details Date Type Department Care Team (Late st Contact Info) Description 03/07/2018 Documentation [facility] Anesthesia [address] [place] [address] Yg Pinedo MD [address] [place] [address] Social History Tobacco Use Types Packs/Day Years Used Date Smoking Tobacco: Never Smokeless Tobacco: Never Alcohol Use Standard Drinks/Week Comments Yes 0 (1 standard drink = 0.6 oz pur e alcohol) Comments Unknown Sex and Gender Information Value Date Recorded Sex Assigned at Not on file Legal Sex Female 7:07 PM FITNESS PROFESSIONAL Gender Identity Female 12/18/2021 9:42 AM CDT Sexual Orientation Not on file 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 12/01/2019 04/08/2020 05/03/2020 3:07 AM C DT documented as of this encounter Care Teams Field Sales Agent Relationship Specialty Start Date End Date Favio Stafford MD [address] [address] PCP - General 06/28/13 Barb Quinn, OT [address] [facility] [address] [place] [address] Occupational Therapist Occupational Therapy 01/11/18 Nabor Mccormack, PT Physical Therapist Physical Therapy 01/11/18 Carlyn Guaman, PT Physical Therapist Physical Therapy 01/21/18 Myra Anderson, PT Physical Therapist Physical Therapy 01/25/18 Teena Lombardi, OT Occupational Therapist Occupational Therapy 02/10/18 Bernadette Montiel, OT Occupational Therapist Occupational Therapy 02/14/18 Júnior Drummond MD [address] [place] [address] Referring Physician Cardiology 06/29/23 Brown Chaudhary MD [address] [place] [address] Consulting Physician Cardiothoracic Surgery 06/29/23 documented as of this encounter
--- OUTSIDE RECORDS SUMMARY | 2024-09-11 01:46 | XMS_ITS | Data Portability ---
Author Organization [facility] Address [address] [place] [address] [place] [address] Care Team Providers Care Laboratory Assistant Name Role Phone ALEX QUIROGA Primary Care Provider [phone] Assessment Encounter Date Assessment Date Assessment LastModified by Organization Details LastModified Time 02/10/2023 02/10/2023 Annual gynecological exam performed. Patient will come back in a year unless there are new symptoms. [email or web address] Not available 02/10/2023 12:42:24 02/15/2024 02/15/2024 Annual gynecological exam performed. Patient will come back in a year unless there are new symptoms. sunday Not available 02/15/2024 10:44:58 Plan of Treatment Reminders Order Date Submit Date Provider Last Modified By Organization Details Last Modified Time Details Appointments None recorded. Lab test, urine 2022 023 [email or web address] [place], [place], [address], 12:10:20 Referral None recorded. Procedures None recorded. Surgeries None recorded. Imaging MAMMO, screening, digital, bilateral 2023 024 MICAELA [facility], [address], [place], [address], 5 05:01:40 MAMMO, screening, bilateral [email or web address] [facility], [place], [address], 3 12:48:31 Medication Orders None recorded. Patient TargetsNo targets recorded. Patient InstructionsNo instructions recorded. Reason for Referral None Reported. 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 Elect mar kowalski by Gabrielle Hampton MD on 2022 at 7:39 AM ----- ----- ----- ----- ----- ----- ----- ----- ----- ----- ----- ----- ----- ----- ----- ----- ----- ---- HPV RESUL TS: HPV mRNA E6/E7 : Posit jae - HPV mRNA Detec terry HPV GENOT YPE 16 (VITO) : Not Detec terry HPV GENOT YPE 18/45 (VITO) : Detec terry NOTE: This high risk HPV mRNA assay detec ts fourt een high- risk HPV types (16, 18, 31, 33, 35, 39, 45, 51, 52, 56, 58, 59, 66, 68) witho ut diffe renti ation . This assay can diffe renti ate HPV 16 from HPV 18/45 , but does not diffe renti ate betwe en HPV 18 and HPV 45. A negat jae HPV 16, 18/45 genot ype assay resul t does not exclu de the possi bilit y of cytol ogic abnor malit ies or of futur e or under lying BOOKER 1, BOOKER 3 or cance r. COMME NT: This speci men was revie wed by a Cytot echno logis t and/o r Patho logis t (as indic ated in this repor t) after evalu ation using the Thinp rep Imagi ng Syste m. CLINI CARLOS INFOR MATIO N: Menst rual Statu s: LMP (if appli cable ): Clini carlos Histo ry/Pr eviou s Pap: Type of Neopl noah (if appli cable ): Signi fican t Clini carlos Findi ngs: Other Histo ry: Hormo verona (if appli cable ): SUGLAVERNE HARDIND FOLLO W-UP: Follo w up as warra nted, based on curre nt guide lines and indiv idual patie nt consi derat ions. 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 -Sepa rate fragm ents of benig n endoc ervic al mucos a. Elect mar kowalski by Jeffery Lim MD on 023 at 12:23 PM ----- ----- ----- ----- ----- ----- ----- ----- ----- ----- ----- ----- ----- ----- ----- ----- ----- ---- CLINI CARLOS INFOR MATJULIETTE N: r87.6 12 MICRO SCOPI C DESCR IPTIO N: A micro scopi c exami natio n was perfo rmed. GROSS DESCR IPTIO N: A. Endoc ervix . The speci men is label ed with the patie nt's name, demog raphi cs and ECC . Recei gianfranco in forma marco antonio is a 0.8 x 0.3 x 0.1 cm aggre gate of mucus and minut e white -abernathy tissu e. The entir e speci men is submi tted in one casse tte. 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 Elect mar kowalski by Jeffery Lim MD on 2023 at 2:35 PM ----- ----- ----- ----- ----- ----- ----- ----- ----- ----- ----- ----- ----- ----- ----- ----- ----- ---- HPV RESUL TS: HPV mRNA E6/E7 : Posit jae - HPV mRNA Detec terry NOTE: This high risk HPV mRNA assay detec ts fourt een high- risk HPV types (16, 18, 31, 33, 35, 39, 45, 51, 52, 56, 58, 59, 66, 68) witho ut diffe renti ation . COMME NT: This speci men was revie wed by a Cytot echno logis t and/o r Patho logis t (as indic ated in this repor t) after evalu ation using the Thinp rep Imagi ng Syste m. CLINI CARLOS INFOR MATIO N: Menst rual Statu s: LMP (if appli cable ): Clini carlos Histo ry/Pr eviou s Pap: Type of Neopl noah (if appli cable ): Signi fican t Clini carlos Findi ngs: Other Histo ry: Hormo verona (if appli cable ): JOSÉ ROMERO FOLLO W-UP: Follo w up as warra nted, based on curre nt guide lines and indiv idual patie nt consi derat ions. Not Available [facility] (Lab) [address], [place], [address], 02/21/2024 15:39:37 03/24/20 24 03/30/2024 BIOPS Y, CERVI CARLOS cervical histology Negati ve normal Not Available [facility] ([facility]) [address] , [place], [address], 03/30/2024 14:40:08 03/24/20 24 03/30/2024 BIOPS Y, CERVI CARLOS results GROSS ING INFOR MATIO N: (B1) CERVI X Recei gianfranco in forma marco antonio on a soft biops y brush is a 0.5 cm aggre gate of clear -to-m ilky mucoi d/fib rinou s mater ial. Speci men is filte red and total ly submi tted. B1 DIAGN OSIS: (B1) CERVI X Benig n ectoc ervic al and endoc ervic al tissu e. No intra epith elial lesio n. UNSP ABNOR MAL CYTOL OG FINDI NGS IN SPECM N FROM CERVI X UTERI (R87. 619) Not Available [facility] ([facility]) [address] , [place], [address], 03/30/2024 14:40:08 05/08/20 22 05/08/2022 US, trans vagin al No observ ation record ed. [email or web address] [place] [address], [place], [address], 05/08/2022 17:39:30 05/08/20 22 05/08/2022 US, trans vagin al No observ ation record ed. [email or web address] [address], [place], [address], 05/09/2022 21:47:09 04/28/20 23 04/27/2023 MAMMO , scree buddy, bilat eral No observ ation record ed. [facility] [address], [place], [address], 05/03/2023 14:30:57 05/02/20 24 05/01/2024 MAMMO , scree buddy, bilat eral No observ ation record ed. [facility] [address], [place], [address], 05/03/2024 21:16:17 Result Notes None recorded. 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 2 09:29:48 Screenin g for malignan t neoplasm of rectum Completed 201510/03/2021 Encounte r for screenin g for malignan t neoplasm of rectum;P ractice ID: 0001 Ellie hardin, [facility] 2 09:29:44 Removal of intraute rine device Completed 201610/03/2021 Encounte r for removal of intraute rine contrace ptive device;P ractice ID: 0001 Ellie hardin, [facility] 2 09:29:40 Insertio n of intraute rine contrace ptive device Completed 201610/03/2021 Encounte r for insertio n of intraute rine contrace ptive device;P ractice ID: 0001 Ellie hardin [facility] 2 09:29:34 Pregnanc y test negative [id number] Completed 201610/03/2021 Encounte r for pregnanc y test, result negative ;Practic e ID: 0001 Ellie hardin [facility] 2 09:29:39 Acute vaginiti s [id number] Completed 201710/03/2021 Acute vaginiti s;Practi ce ID: 0001 Ellie hardin, [facility] 2 09:29:25 Imaging of abdomen abnormal [id number] Completed 201710/03/2021 Abn findings on dx imaging of abd regions, inc retroper iton;Pra ctice ID: 0001 [facility] 09:29:32 Vaginiti s and vulvovag initis Completed 201210/03/2021 Vaginiti s;Record ed Elsewher e: No Locat ion: [facility] S ource: [employer] [place]: N Practi ce ID: 0001 Venancio lable Time: 02:00:00 PM [facility] 09:29:51 Speciali zed medical examinat ion Completed 201210/03/2021 Gynecolo gical Examinat ion;Carlos rded Elsewher e: No Locat ion: [facility] S ource: [employer] [place]: N Practi ce ID: 0001 Venancio lable Time: 10:00:00 AM [facility] 09:29:49 Dysfunct ional uterine bleeding Completed 201110/03/2021 Other disorder s of menstrua tion and other abnormal bleeding from female genital tract;Re corded Elsewher e: No Locat ion: [facility] S ource: [employer] [place]: N Practi ce ID: 0001 Venancio lable Time: 09:30:00 AM Ellie Laratz wilfred, [facility] 2 09:29:28 Screenin g for malignan t neoplasm of cervix Completed 201110/03/2021 Screenin g for malignan t neoplasm s of the cervix;R ecorded Elsewher e: No Locat ion: [facility] S ource: [employer] [place]: N Maristi ce ID: 0001 Venancio lable Time: 10:30:00 AM Ellie Bennett [facility], [facility] [address] 09:[address] Concept Completed 201510/03/2021 Encntr for general adult medical exam w/o abnormal findings ;Recorde d Elsewher e: No Locat ion: [facility] S ource: [employer] [place]: N Zeynep ce ID: 0001 Venancio lable Time: 10:30:00 AM Ellie Bennett [facility], [facility] 2 09:29:46 Neoplasm of uncertai n behavior of skin [id number] Completed 201210/03/2021 Neoplasm of uncertai n behavior of skin;Rec orded Elsewher e: No Locat ion: [facility] S ource: [employer] [place]: N Maristeresa ce ID: 0001 Venancio lable Time: 10:00:00 AM Ellie Bennett [facility] 2 09:29:36 Adult health examinat ion Completed 201410/03/2021 ROUTINE MEDICAL EXAM;Rec orded Elsewher e: No Locat ion: [facility] S ource: [employer] [place]: N Maristi ce ID: 0001 Venancio lable Time: 01:00:00 PM Ellie Laratz wlifred, [facility] 2 09:29:27 Family planning surveill ance Completed 201110/03/2021 Contrace ptive surveill ance, unspecif ied;Carlos rded Elsewher e: No Locat ion: Boom roman [facility] S ource: [employer]: N Practi ce ID: 0001 Venancio lable Time: 10:30:00 AM Ellie hardin, [facility] 09:29:31 Problem Notes None recorded. Procedures Surgical History Date Name Laterality Status Provider Name and Address Organization Details Recorded Time 03/24/20 24 Colposcopy completed SAMUEL LIM MD [address], [place], [address], [facility] 03/24/2024 16:53:27 03/02/20 23 Col[address] Olena Iraheta [facility]- [address], [place], [address], [facility] 03/02/2023 12:46:43 02/11/20 23 Date of Last Pap Smear completed Unique Seg[employer]ia [facility] 03/02/2023 12:09:00 07/26/19 23 open heart surgery completed [employer] [facility] 02/10/2023 12:44:36 07/26/19 18 open heart surgery completed Ellie Bennett [facility] 10/03/2021 09:30:32 07/26/19 10 open heart surgery completed Ellie Bennett [facility] 10/03/2021 17:44:39 Imaging Results Imaging Date Name Status LastModified by Organization Details LastModified Time 05/08/2022 US, transvaginal completed [email or web address] [facility] [address], [place], [address], 05/08/2022 17:39:30 05/08/2022 US, transvaginal completed [email or web address] [address], [place], [address], 05/09/2022 21:47:09 04/27/2023 MAMMO, screening, bilateral completed [facility] [address], [place], [address], 05/03/2023 14:30:57 05/01/2024 MAMMO, screening, bilateral completed [facility] [address], [place], [address], 05/03/2024 21:16:17 Procedure Notes None recorded. Medical Equipment None Reported. Allergies Allergen ID Allergen Name Allergen Category Reaction Reaction Severity Criticality Documentation Date Start Date Code Code System Note Provider Name and Address Organization Details Recorded Time 280 Product containin g penicilli n (product) medicatio n Not available Not available Not available 06/17/[id number] [facility] 0 14:34:28 Medications Name Sig Start Date Stop Date Status Note LastModified by Organization Details LastModified Time furosemid e 40 mg tablet 02/10 completed Not Available Not Available Not Available Mirena 21 mcg/24 hr (up to 8 years) 52 mg intrauter ine device 2018 active Prescrib ed Elsewher e: Yes Loca tion: [facility] odify By: mariusz Roman ncounter DateTime : 12/13/19 09:30:00 AM Not Available Not Available Not Available doxycycli ne hyclate 100 mg capsule 02/10 completed Not Available Not Available Not Available atorvasta tin 20 mg tablet active Not Available Not Available Not Available clindamyc in HCl 300 mg capsule 02/14 completed Not Available Not Available Not Available atorvasta tin 10 mg tablet take 1 tablet by oral route every day 10/03 completed Prescrib ed Elsewher e: Yes Loca tion: [facility] odify By: dallin Roman ncounter DateTime : 12/17/19 09:47:45 AM Not Available Not Available Not Available azithromy booker 250 mg tablet 02/14 completed Not Available Not Available Not Available fluconazo le 150 mg tablet 150mg PO, take 1 tablet day 1 then second tablet 48hrs from first dose 02/18 completed Not Available Not Available Not Available clarithro mycin 500 mg tablet take 1 tablet by oral route every 12 hours 12/29 completed Prescrib ed Elsewher e: No [facility]at [facility]: [facility]ify By: dallin hernandez DateTime : 12/17/19 09:47:45 AM Not Available Not Available Not Available meloxicam 15 mg tablet 06/17 completed Not Available Not Available Not Available Effexor XR 37.5 mg capsule,e xtended release active Not Available Not Available Not Available hydralazi ne 25 mg tablet active Not Available Not Available Not Available oxycodone -acetamin ophen 5 mg-325 mg tablet 02/10 completed Not Available Not Available Not Available metoprolo l tartrate 100 mg-hydroc hlorothia zide 25 mg tablet take 1 tablet by oral route every day 12/12 completed Prescrib ed Elsewher e: Yes [facility] By: mariusz hernandez DateTime : 07/08/20 12 09:30:00 AM Not Available Not Available Not Available Metrogel Vaginal 0.75 % (37.5 mg/5 gram) insert 1 applicat orful by vaginal route for 5 nights at bedtime 12/12 completed Prescrib ed Elsewher e: No Locat ion: [facility] odify By: mariusz hernandez DateTime : 02/19/20 18 01:18:41 PM Not Available Not Available Not Available potassium chloride ER 20 mEq tablet,ex tended release(p art/cryst ) active Not Available Not Available Not Available amitripty line 10 mg tablet 06/17 completed Not Available Not Available Not Available hydralazi ne 100 mg tablet active Not Available Not Available Not Available telmisart an 40 mg tablet 02/14 completed Not Available Not Available Not Available prednison e 50 mg tablet 02/14 completed Not Available Not Available Not Available telmisart an 80 mg tablet 02/10 completed Not Available Not Available Not Available hydrochlo rothiazid e 12.5 mg capsule 02/10 completed Not Available Not Available Not Available zolpidem 10 mg tablet TAKE 1 TABLET BY MOUTH EVERY NIGHT AT BEDTIME NEEDED FOR INSOMNIA active Not Available Not Available No t Available losartan 100 mg tablet 100 mg every day by oral route. active Not Available Not Available No t Available levothyro xine 112 mcg tablet TAKE 1 TABLET BY MOUTH DAILY active Not Available Not Available No t Available magnesium active Not Available Not Vidya ilable Not Available Vitamin C active Not Available Not Vidya ilable Not Available vitamin E active Not Available Not Vidya ilable Not Available Super B-50 Complex active Not Available Not Available Not Available Bystolic 2.5 mg tablet take 2 tablet by oral route every day 03/17 completed Prescrib ed Elsewher e: Yes [facility] odify By: jose angel dunham DateTime : 03/16/20 12 03:53:44 PM Not Available Not Available Not Available Bystolic 5 mg tablet take 1 tablet by oral route every day 10/03 completed Prescrib ed Elsewher e: Yes [facility]oca [facility] By: mariusz Roman ncounter DateTime : 12/13/19 19 09:30:00 AM Not Available Not Available Not Available nebivolol 10 mg tablet active Not Available Not Available Not Available Tirosint 88 mcg capsule take 1 capsule by oral route every day 10/03 completed Prescrib ed Elsewher e: Yes Loca tion: [facility] odify By: monica dunham DateTime : 07/08/20 12 09:30:00 AM Not Available Not Available Not Available Gynazole- 1 2 % vaginal cream insert 1 applicat orful by vaginal route once 07/17 completed Prescrib ed Elsewher e: No [facility]at [facility]: [facility] By: jazzmine dunham DateTime : 07/17/20 15 10:30:00 AM Not Available Not Available Not Available Multi Vitamin active Not Available Not Available Not Available Nuvessa 1.3 % (65 mg/5 gram) vaginal gel insert 1 applicat orful by vaginal route once at bedtime 12/29 completed Prescrib ed Elsewher e: No Locat ion: Boom [facility] odify By: dallin hernandez DateTime : 12/13/19 09:30:00 AM Not Available Not Available Not Available Solosec [address] granules in packet Take 1 packet by oral route. 10/10 completed Not Available Not Available Not Available Paxlovid 300 mg (150 mg x 2)-100 mg tablets in a dose pack 02/14 completed Not Available Not Available Not Available Vitals Date Recorded Body height Provider Name an d Address Organization Details Last Updated DateTime 05/22/2022 165.74 cm Nat Anderson [facility] 05/22/2022 12:17:41 Date Recorded Body height Body mass index (BMI) Body weight Provider Name and Address Organization Details Last Updated DateTime 02/10/2023 165.74 cm 30.2 kg/m2 18516.4 g [employer] [facility] 02/10/2023 12:42:35 Date Recorded Systolic blood pressure Diastolic blood pressure Provider Name and Address Organization Details Last Updated DateTime 02/10/2023 122 mm[Hg] 72 mm[Hg] Olena Iraheta [facility] [address], [place], [address], [facility] 02/10/2023 17:41:07 Date Recorded Body height Body mass index (BMI) Body weight Provider Name and Address Organization Details Last Updated DateTime 03/02/2023 165.74 cm 29.4 kg/m2 46798.44 g [employer] [facility] 03/02/2023 12:08:37 Date Recorded Systolic blood pressure Diastolic blood pressure Provider Name and Address Organization Details Last Updated DateTime 03/02/2023 122 mm[Hg] 74 mm[Hg] Olena Iraheta [facility] [address], [place], [address], [facility] 03/02/2023 13:27:24 Date Recorded Body height Body mass index (BMI) Body weight Systolic blood pressure Diastolic blood pressure Provider Name and Address Organization Details Last Updated DateTime 02/15/2024 165.74 cm 28.7 kg/m2 89203.07 g 134 mm[Hg] 84 mm[Hg] Alma Delia Brito [facility] 4 10:17:54 Date Recorded Body height Body mass index (BMI) Body weight Systolic blood pressure Diastolic blood pressure Provider Name and Address Organization Details Last Updated DateTime 03/24/2024 165.74 cm 29 kg/m2 65403.54 g 149 mm[Hg] 84 mm[Hg] Genie Jansen [facility] 4 16:06:39 Social History Question Answer Notes LastModified by Organizat ion Details LastModified Time Tobacco Smoking Status Never Smoker Nika Pabon wilfred, [facility] 03/02/2023 11:48:34 Do You Have An Advance Directive? No [email or web address] Information n ot available 10/03/2021 What Is Your Level Of Alcohol Consumption? Occasional [email or web address] Information not available 10/03/2021 How Many Years Have You Consumed Alcohol? 20 [email or web address] Information not available 10/03/2021 Are You Blind Or Do You Have Difficulty Seeing? No [email or web address] Information n ot available 10/03/2021 What Is Your Level Of Caffeine Consumption? Occasional [email or web address] Information not available 10/03/2021 How Much Tobacco Do You Chew? None [email or web address] Information not available 10/03/2021 In The 14 Days Before Symptom Onset, Have You Had Close Contact With A Laboratory-confirm ed COVID-19 While That Case Was Ill? No [email or web address] Information n ot available 10/03/2021 In The 14 Days Before Symptom Onset, Have You Had Close Contact With A Person Who Is Under Investigation For COVID-19 While That Person Was Ill? No [email or web address] Information not available 10/03/2021 Have You Been To An Area Known To Be High Risk For COVID-19? No [email or web address] Information not available 10/03/2021 Are You Deaf Or Do You Have Serious Difficulty Hearing? No [email or web address] Information not available 10/03/2021 What Type Of Diet Are You Following? REGULAR [email or web address] Information n ot available 10/03/2021 What Is The Highest Grade Or Level Of School You Have Completed Or The Highest Degree You Have Received? 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 Yes [email or web address] Information not available 10/03/2021 Do You Use Protection During Sex? No [email or web address] Information not available 10/03/2021 Do You Use Your Seat Belt Or Car Seat Routinely? Yes [email or web address] Information not available 10/03/2021 Do You Have Smoke And Carbon Monoxide Detectors In Your Home? Yes [email or web address] Information not available 10/03/2021 How Much Tobacco Do You Smoke? No [email or web address] Information not available 10/03/2021 Do You Feel Stressed (tense, Restless, Nervous, Or Anxious, Or Unable To Sleep At Night)? [id number] Information not available 10/03/2021 Do You Use Any Illicit Or Recreational Drugs? Yes [email or web address] Information not available 02/18/2022 Do You Use Sunscreen Routinely? Yes [email or web address] Information not available 10/03/2021 Have You Used IV Drugs? No [email or web address] Information not available 10/03/2021 Sex: Unknown Functional Status Question Answer Note LastModified by Organizat ion Details LastModified Time Do you have difficulty walking or climbing stairs? No [email or web address] Information not available 03/02/2023 Are you able to walk? YESWOREST [email or web address] Information not available 10/03/2021 Are you able to care for yourself? Yes [email or web address] Information not available 03/02/2023 Do you have difficulty dressing or bathing? No [email or web address] Information not available 03/02/2023 What is your exercise level? Moderate [email or web address] Information not available 10/03/2021 Mental Status None recorded. Family History Relationship Description Onset Age of this Age Resolved Age Notes LastModified by Organization Details LastModified Time Maternal Aunt Heart disease [email or web address] Not available 10/03 17:43:35 Maternal Aunt Deep venous thrombosis [email or web address] Not available 03/24 15:54:52 Medical History Condition Response Allergies (Food, seasonal, environmental ) N Other N Drug/Latex Allergies/Reactions Y Breast Cancer N Blood Transfusion N Dermatologic Disorders N Lung Disease N Defects or Inherited Disease N Breast Problem N Gestational Diabetes N Hematologic disorders N Anesthesia Complications N History of STI N Deep Vein Thrombosis N Polycystic ovary syndrome N Anxiety Disorder Y Autoimmune disease N Arthritis N Polyps N Infertility N Acid Reflux (GERD) N History of abnormal pap Y Cancer N Varicosities N Stroke Y Neurologic/Epilepsy Y Endometriosis N High Cholesterol Y Fibromyalgia N Headaches N Kidney Disease N Heart Problems Y Thyroid Problems Y Kidney or Bladder Problems N GI Problems N Eating Disorder N Anemia N Art (IVF or FET) N Psychiatric Illness N Ovarian Cancer N Diabetes N Pulmonary (TB, Asthma) N Hepatitis/Liver Disease N No Past Medical History N Eczema N Urinary Tract Infection N Abuse/Domestic Violence N Asthma N Trauma/Violence N Depression/ depression Y Heart Disease Y Pre-Eclampsia N Hypertension Y Osteoporosis N Thrombophilias N Gynecological History Statement/Question Response Abnormal Pap Y Date of Last Mammogram Date of LMP N On BCP's at Conception? N STIs/STDs N Was last menstrual period normal Y HPV Vaccine N Colposcopy Current Control Method IUD Age at First Child 25 Date of Last Colonoscopy Sexually Active? Y IUD Menses Monthly N Date of DEXA bone scan Age of first menstrual cycle 12 Date of Last Pap Smear 02/10/2023 Sexual Problems? N LMP Unknown Desired Control Method IUD N Obstetrics History GPAL:G 2 P 2 0 0 2 Type Value Full Term 2 Living 2 Total 2 Past Encounters Encounter ID Performer Location Encounter Start Date Encounter Closed Date Diagnosis/Indication Diagnosis SNOMED-CT Code Diagnosis ICD10 Code Diagnosis Note [id number] [facility] [address] [address] 06/17/2020 14:20:41 06/17/2020 15:19:25 Gynecologic examination 66962113 Z01.419 Suggested Calcium with Vitamin D 1200-1500m g daily. Patient advised to get an annual flu shot in the fall and she could obtain at [facility] or [facility] clinic. Also to obtain TDap vaccinatio n if you have not had one in the last 10 years. Recommend yearly mammograms . Encouraged monthly self breast exams. Encourage safe sexual practices, to use condoms and limit partners if not already in a monogamous relationsh ip. Engage in daily exercise of low impact aerobic exercise 45-60 minutes 4-5 times weekly. Avoid tobacco and illicit drugs as well as using moderation with alcohol intake less than 1-2 8 oz beverages daily. This lifestyle behavior pattern will lead to less health conditions and longer life span. If BMI greater than 25 weight watchers or dietary consult advised. All questions have been answered. Patient appears to understand informatio n, but if you have any questions please call or respond to this email. Pap/hpv updated Last pap 2019 n last pap/hpv 2017 n/n Mammo ordered No issues or concerns. IUD Mirena placed 06/01/2017 Had some discomfort during sex last encounter but nothing now. Will monitor. If any issues will do TVUS. [id number] Olena Iraheta [facility] [address],[place] [address] 07/31/2020 09:59:12 07/31/2020 17:21:24 Vaginitis 15432542 N76.0 Will send vag cx's Rec daily stool softners to keep stools soft & avoid friction on hemorrhoid . Will call with results. Time spent in visit is a total of 15 mins with at least 50% of visit consisting of counseling and review of plan of care. [id number] Andreea Santos [facility] [address],[place] [address] 10/03/2021 09:18:39 10/03/2021 09:49:51 Bacterial vaginosis 031010915 N76.0 [id number] Olena Iraheta [facility] [address],[place] [address] 10/10/2021 14:26:51 10/10/2021 15:20:46 Gynecologic examination [id number] Z01.419 Suggested Calcium with Vitamin D 1200-1500m g daily. Patient advised to get an annual flu shot in the fall and she could obtain at [facility] or [facility] care clinic. Also to obtain TDap vaccinatio n if you have not had one in the last 10 years. Recommend yearly mammograms . Encouraged monthly self breast exams. Encourage safe sexual practices, to use condoms and limit partners if not already in a monogamous relationsh ip. Engage in daily exercise of low impact aerobic exercise 45-60 minutes 4-5 times weekly. Avoid tobacco and illicit drugs as well as using moderation with alcohol intake less than 1-2 8 oz beverages daily. This lifestyle behavior pattern will lead to less health conditions and longer life span. If BMI greater than 25 weight watchers or dietary consult advised. All questions have been answered. Patient appears to understand informatio n, but if you have any questions please call or respond to this email. Pap/hpv defer until 2022 unless otherwise indicated STD Screen declined Genetic Screen discussed Colon Screen discussed- -opts to defer Dexa Screen-n/a Routine Labs UTD per PCP A Mirena IUD prevents for up to 7 years, and also helps with heavy periods for up to 5 years in women who choose an IUD for control. [id number] Olena Iraheta , [facility] [address] [address] 02/18/2022 12:25:28 02/20/2022 15:34:40 Menopausal symptom [id number] N95.1 Today we discussed non-hormon al menopause sx treatment options due to Hx of Stroke/Hea rt issues that are contraindi cated with use of estrogen products including vaginal estrogen products.S he has a Mirena IUD to manage her cycles.She is having night sweats, some hot flashes & mood changes (i.e. irritabili ty, lack of motivation , low energy, fatigue).L ow dose antidepres mitra/antia nxiety was discussed & trial of effexor was initiated after counseled on this medication /possible side effects. Counseled on r/b's, most common side effects of this therapy with instructio ns to stop medication with any significan t abnormal change in mood especially with thoughts of suicide/se lf-harm/cortez rm to others. Understand ing verbalized . We reviewed this medication & possible interactio ns with other current medication s. Will contact if has any issues with this. Patient is to contact office or go to nearest ED/Urgent care if fever >/= 100.1, pain, excessive bleeding, unusual drainage or swelling in area of concern; or experienci ng worsening sx's or new onset of concerning sx's. Understand ing verbalized . All questions answered to patient satisfacti on. Time spent in visit is a total of 26 mins with at least 50% of visit consisting of counseling and review of plan of care. [id number] Andreea Santos CNM [place] [address],[place] [address] 04/08/2022 12:24:18 04/08/2022 14:05:50 Pain in pelvis [id number] R10.2 [id number] Karina Alvarez [place] [address],[place] [address] 04/08/2022 12:51:00 04/08/2022 14:05:05 Pain in pelvis 71710648 R10.2 N83.291 [id number] Judson Junior MD [place] [address],[place] [address] 04/23/2022 14:37:19 04/24/2022 15:07:38 Pain in pelvis 19706391 R10.2 N83.291 Cyst of ovary 58885799 N 83.209 This patient is a 46-year-ol d female presents for follow-up on ovarian cyst. She has a 4.7 cm hemorrhagi c ovarian cyst. Talked about the etiology, natural history, treatment of cyst. Talked about her symptoms. She does have intermitte nt pain at this time that is more bothersome than severely painful. She did have an episode of very severe pain believed to be associated with the cyst. May be a partial torsion. It did resolve however. That was a couple of weeks ago. Her pain is been stable we shared images of the pelvic ultrasound . We talked about the significan ce of her situation, as it is told on the ultrasound . We spent more than 40 minutes face-to-fa ce. More than 50% was counseling . We agreed to observe. We did talk about laparoscop y and surgical treatment is cyst. We agreed to observe repeat ultrasound . She has a follow-up ultrasound scheduled. We will meet after the follow-up ultrasound that schedule. [id number] Harper Kirby [place] [address] [address] 05/08/2022 15:54:46 05/08/2022 16:38:11 Cyst of right ovary [id number] N83.201 [id number] Judson Junior MD [place] [address],[place] [address] 05/11/2022 15:57:02 05/11/2022 21:17:10 [id number] Judson Junior MD [place] [address],[place] [address] 05/22/2022 12:06:08 05/22/2022 13:37:20 Cyst of ovary 34163606 N83.209 46-year-ol d female who presents over the phone for discussion of ultrasound . Her ultrasound is better. She had a 4.7 cm cyst previously was blood-fill ed. That is resolved essentiall y. There is a small 1.6 cm cystic structure that may be the same thing. I think it is unclear if it is or if this is something different. No follow-up is required here it is not technicall y a cyst. Only 1.6 cm. Possibly more dominant follicle. She is fine with observatio n. No more ultrasound follow-up required. [id number] [facility] [address],[facility] [place] [address] 02/10/2023 12:32:30 02/10/2023 17:56:17 Gynecologic examination 90651048 Z01.419 Suggested Calcium with Vitamin D 1200-1500m g daily. Patient advised to get an annual flu shot in the fall and she could obtain at [facility] or [facility] take care clinic. Also to obtain TDap vaccinatio n if you have not had one in the last 10 years. Recommend yearly mammograms . Encouraged monthly self breast exams. Encourage safe sexual practices, to use condoms and limit partners if not already in a monogamous relationsh ip. Engage in daily exercise of low impact aerobic exercise 45-60 minutes 4-5 times weekly. Avoid tobacco and illicit drugs as well as using moderation with alcohol intake less than 1-2 8 oz beverages daily. This lifestyle behavior pattern will lead to less health conditions and longer life span. If BMI greater than 25 weight watchers or dietary consult advised. All questions have been answered. Patient appears to understand informatio n, but if you have any questions please call or respond to this email. Pap/hpv sentSTD Screen declinedGe netic Screen discussedC olon Screen discussd-- Will get from PCPDexa Screen-n/a Routine Labs UTD per PCP A Mirena IUD prevents for up to 8 years, and also helps with heavy periods for up to 5 years in women who choose an IUD for control. Screening mammography [id number] 428889 Z12.31 [id number] [facility] [address] [address] 03/02/2023 11:45:50 03/02/2023 13:30:33 Screening procedure 20216129 Z13.9 Low grade squamous intraepithelial lesion on cervical Papanicolaou smear [id number] 9105 R87.612 See procedure notes.Post -procedure instructio ns reviewed with understand ing verbalized .Will contact with results & next steps in plan of care. Counseled on Pap/HPV guidelines /Testing/R esults with understand ing verbalized .All questions answered to patient satisfacti on. Booklet & additional resources regarding pap smear/HPV/ Pap results given. [email or web address] [email or web address].cancer.g ov/types/c ervical/un derstandin g-abnormal -hpv-and-p ap-test-re sults/unde rstanding- cervical-c hanges.pdf [id number] ROSE Ramsey [place] [address] [address] 02/15/2024 10:14:52 02/15/2024 10:51:36 Gynecologic examination 20976522 Z01.419 [facility] - Mirena IUD (will 06/02/2025) pap updateddec lined STI screenmamm ogram order given, due ol on cancer screening discussed / encouraged , she will f/u with PCProutine labs/PCP Patient advised to get an annual flu shot in the fall and she could obtain at local pharmacy. Also to obtain TDap vaccinatio n if you have not had one in the last 10 years. Recommend yearly mammograms . Encouraged monthly self breast exams. Encourage safe sexual practices, to use condoms and limit partners if not already in a monogamous relationsh ip. Engage in regular exercise. Avoid tobacco and illicit drugs. This lifestyle behavior pattern will lead to less health conditions and longer life span. If BMI greater than 25 dietary consult advised. All questions have been answered. Screening for malignant neoplasm of breast 147686769 Z12.39 [id number] SAMUEL LIM MD [place] [address] [address] 03/24/2024 15:54:19 03/24/2024 16:54:51 Atypical squamous cells of undetermined significance on cervical Papanicolaou smear 924680886 R87.610 - colposcopy performed today, patient tolerated well- will follow up on results as available Human shanique lloma virus infection [id number] B97.7 Health Concerns Section Related Observation LastModified by Organization Detai ls LastModified Time None Recorded Concern Status LastModified by Organization Details LastModified Time None Recorded Advance Directives Directive N: Payers Encounter Date Sequence Insurance Name Policy Number Policy Ordoñez Covered Member ID Ordoñez Member ID Guarantor Name 05/22/2022 1 [facility] [id number] Kaity J Widel [id number] Kaity J Widel 05/22/2022 2 [employer] - [facility] - DOS PRIOR TO 07.26.2023 [id number] Fernando Widel [id number] Kaity J Widel 02/10/2023 1 [facility] [id number] Kaity J Widel [id number] Kaity J Widel 02/10/2023 2 [facility] Widel [id number] U Kaity J Widel 03/02/2023 1 [facility] [id number] Kaity J Widel [id number] Kaity J Widel 03/02/2023 2 [facility] Widel [id number] U Kaity J Widel 02/15/2024 1 [facility] [id number] Kaity J Widel [id number] Kaity J Widel 02/15/2024 2 [facility] Widel [id number] U Kaity Mckinney Wideradha 03/24/2024 1 [facility] [id number] Kaity Mckinney Widel [id number] Kaity Mckinney Widel 03/24/2024 2 [employer] [facility] Albino Mazariegos [id number] U Kaity Mazariegos Notes Date Note Type Note Provider Name and Address Organization Details Recorded Time 05/22/2022 text/html 46-year-old arline alas who presents over the phone for discussion of ultrasound. Her ultrasound is better. She had a 4.7 cm cyst previously was blood-filled. That is resolved essentially. There is a small 1.6 cm cystic structure that may be the same thing. I think it is unclear if it is or if this is something different. No follow-up is required here it is not technically a cyst. Only 1.6 cm. Possibly more dominant follicle. She is fine with observation. No more ultrasound follow-up required. Judson Junior MD [address], [place], [address], [facility] 05/22/2022 12:46:09 02/10/2023 text/html Annual GYNReport ed bypatient.Menstrua l cycle:Normal menses Urinary symptoms:No hematuria; No incontinence Vulva:No genital lesion Vagina:Normal vaginal discharge Breast:No breast pain; No breast lump; No nipple discharge Current Contraception:Sati sfied with current contraception; Intrauterine device (iud) Sexual complaints:No sexual complaints; No pain during intercourse; Normal libido Menopausal Symptoms:No menopausal symptoms; Normal vaginal lubrication Psychological symptoms:No depression; No anxiety; No PMDD Preventive measures:Encourage self breast examination; Encourage regular exercise; Encourage no tobacco use; Encourage regular mammograms starting age 40; Followed with yearly pap smears; Needs to schedule mammogram MIKE Miller [address], [place], [address], [facility] 02/10/2023 17:42:09 03/02/2023 text/html Here today for colposcopy of LGSIL 2022. MIKE Miller [address], [place], [address], [facility] 03/02/2023 13:27:32 02/15/2024 text/html Annual GYNReport ed bypatient.Menstrua l cycle:Normal menses Urinary symptoms:No hematuria; No incontinence Vulva:No genital lesion Vagina:Normal vaginal discharge Breast:No breast pain; No breast lump; No nipple discharge Current Contraception:Sati sfied with current contraception; Intrauterine device (iud) Sexual complaints:No sexual complaints; No pain during intercourse; Normal libido Menopausal Symptoms:No menopausal symptoms; Normal vaginal lubrication Psychological symptoms:No depression; No anxiety; No PMDD Preventive measures:Encourage self breast examination; Encourage regular exercise; Encourage no tobacco use; Encourage regular mammograms starting age 40Notes:48yo WWEB - mirena IUD, inserted 06/02/2017 (will 06/02/2025)last pap 01/2023 : LSIL, HPV (+)colpo 02/2023 : BOOKER 1 mammogram last 04/2023no colon cancer screening done yet ROSE Ramsey [address], [place], [address], [facility] 02/15/2024 10:51:24 03/24/2024 text/html Patient presents for colposcopy indicated for ASCUS/+HPV. SAMUEL LIM MD [address], [place], [address], [facility] 03/24/2024 16:54:40 OBGyn Episode Ob Episode Information Episode Created Date Number of Fetuses Patient Bloodtype Patient rh Status Prepregnancy Weight lbs Domestic Partner Domestic Partner Phone Father Name [employer] Operator Chief Status 10/04/19 22 1 CLOSED Fetus Data First Name Last Name Admitted to NICU Weight (g) Sex Living Outcome Pediatric Complications Fetus ID Race Codes Race Delivery Type 2976.47 0704 M Full Term [id number] Vaginal Delivery Gordon Calculation Initial Gordon Date Initial Exam Date Initial Exam Provider Initial Ultrasound Date Last Menstrual Period Date Ultra Sound Weeks Gestation 0 Eighteen To Twenty Week Gordon Update Ultra Sound Date Fundal Height At Umbil Quickening Date Ultra Sound Latest Weeks Gestation Final Gordon Confirmed By Final Gordon Confirmed Date Final Gordon Date Ultra Sound Latest Days Gestation 0 0 Menstrual History Last Menstrual Date Menses Monthly On Bcp Conception Prior Menses Frequency Hcg Plus Date Menarche Onset Age Delivery Information Delivery Date Delivery Type Labor Anesthesia Weeks Gestation Incision Type Labor Labor Length Hrs Delivered By Post Complications Tubal Sterilization Discharge Date Comments 2 37 Discharge Information Feeding Method Contraceptive Method Maternal HG B and HCT Levels Ob Episode Information Episode Created Date Number of Fetuses Patient Bloodtype Patient rh Status Prepregnancy Weight lbs Domestic Partner Domestic Partner Phone Father Name [employer] Pump [employer] Operator Chief Status 10/04/19 22 1 CLOSED Fetus Data First Name Last Name Admitted to NICU Weight (g) Sex Living Outcome Pediatric Complications Fetus ID Race Codes Race Delivery Type 3061.74 6 M Full Term [id number] Vaginal Delivery Gordon Calculation Initial Gordon Date Initial Exam Date Initial Exam Provider Initial Ultrasound Date Last Menstrual Period Date Ultra Sound Weeks Gestation 0 Eighteen To Twenty Week Gordon Update Ultra Sound Date Fundal Height At Umbil Quickening Date Ultra Sound Latest Weeks Gestation Final Gordon Confirmed By Final Gordon Confirmed Date Final Gordon Date Ultra Sound Latest Days Gestation 0 0 Menstrual History Last Menstrual Date Menses Monthly On Bcp Conception Prior Menses Frequency Hcg Plus Date Menarche Onset Age Delivery Information Delivery Date Delivery Type Labor Anesthesia Weeks Gestation Incision Type Labor Labor Length Hrs Delivered By Post Complications Tubal Sterilization Discharge Date Comments 0 38 Discharge Information Feeding Method Contraceptive Method Maternal HG B and HCT Levels
--- OUTSIDE RECORDS SUMMARY | 2024-09-11 01:46 | XMS_ITS | Patient Health Summary ---
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 This disclosure is being madepursuant to the Care Everywhere program and may not contain all information available regarding this patient. Last updated 18.[facility] [employer] Allergies * Penicillins(Rash) -Medium Criticality Medications * Be aware that medications may not be up to date on this document. Alwaysverify current medications with the patient. * HYDRALAZINE HCL PO * LEVOTHYROXINE SODIUM PO * ATORVASTATIN CALCIUM PO * Nebivolol HCl (BYSTOLIC PO) * LOSARTAN POTASSIUM PO Social History Tobacco Use Types Packs/Day Years [...] Mass Index 26.63 10/04/2018 12:06 PM CDT Procedures * DERMATOPATHOLOGY(Performed 10/29/2021) * DERMATOPATHOLOGY(Performed 10/10/2020) Results * DERMATOPATHOLOGY (10/29/2021 12:00 AM CDT) Only the most recent of2 resultswithin the time period is included. Case Report Dermatopathology Report Case: [id number] Authorizing Provider: Emma Howard DO Collected: 10/29/2021 12:00 AM Ordering Location: [facility] DermPath Lab Received: 10/29/2021 03:55 PM Pathologist: Fahad Morocho MD Specimens: A) - Skin, left superior back B) - Skin, left inferior back 10:12 AM CDT DERMATOPATHOLOGY LABORATORY Final Diagnosis Specimen A. SKIN, left superior back: INTRADERMAL MELANOCYTIC NEVUS (D22.5) Specimen B. SKIN, left inferior back: INTRADERMAL MELANOCYTIC NEVUS (D22.5) 10:12 AM CDT DERMATOPATHOLOGY LABORATORY Clinical History A-B: Nevus, irritated. 10:12 AM CDT DERMATOPATHOLOGY LABORATORY Gross Description Specimen A: Received is one formalin filled container labeled with the patient's name and designated left superior back. The specimen consists of a shave biopsy measuring [id number]. Jar 0. Specimen B: Received is one formalin filled container labeled with the patient's name and designated left inferior back. The specimen consists of a shave biopsy measuring [id number]. Jar 0. 10:12 AM CDT DERMATOPATHOLOGY LABORATORY Microscopic Description Specimen A. SKIN, left superior back: There are nests of cytologically bland melanocytes within the dermis that mature with depth. Specimen B. SKIN, left inferior back: There are nests of cytologically bland melanocytes within the dermis that mature with depth. 2 10:12 AM CDT DERMATOPATHOLOGY LABORATORY Disclaimer An external and internal positive and negative controls are appropriate for the histochemical, immunohistochemical and immunofluorescence stain(s) in this case (if any), except where stated explicitly. The performance characteristics of the stain(s) cited in this report were developed and its performance characteristic determined by the Dermatopathology Laboratory at [facility], directed by Dr. Lloyd Morocho. These tests need not be, and therefore are not, approved by the [place] Food and Drug Administration. The tests are used for clinical purposes. Billing Codes Specimen Charges Stain Charges 18014 12284 1 1 2 10:12 AM CDT DERMATOPATHOLOGY LABORATORY Embedded Images 2 10:12 AM CDT DERMATOPATHOLOGY LABORATORY Pathology/Cytology TISSUE SPECIMEN FROM SKIN / Unknown 10/29/2021 10/29/2021 3:55 PM CDT Miscellaneous samples (specimen) TISSUE SPECIMEN FROM SKIN / Unknown 10/29/2021 10/29/2021 3:55 PM CDT Emma Howard DO LAB - PATHOLOGY/C YTOLOGY ORDERABLES DERMATOPATHOLOGY LABORATORY [facility] - Department of Dermatology [facility] [address] [place] [address], [address] [phone] Care Teams Strike Off Machine Operator Relationship Specialty Start Date End Date Favio Stafford MD PCP - General Family Medicine 10/04/18
[2024-09-11] MEDS: VANCOMYCIN 1,250 MG/NS 250 ML BAG 166.67 MG IVPB (07:49)
[2024-09-11 07:53] VITALS: BP 116/70; PULSE 60; RESP 18; TEMP 36.1; O2SAT 100
--- NOTE | 2024-09-11 08:00 | WPDANESEPPF ---
Anes - Initial Pre Proc Eval Procedure: Operation Date: 09/11/24 08:30 Proposed Procedures p Screening Colonoscopy - Jomar Roberto MD Date/Time: 09/11/24 08:00 Surgeon: Jomar Roberto MD Pre Op Diagnosis: screening malignant neoplasm colon Patient Data Age: 49 Gender: F Height: 1.68 m Weight: 81.2 kg Last Vital Signs Temp 36.1 C L 09/11/24 07:53 Pulse 60 09/11/24 07:53 Resp 18 09/11/24 07:53 BP 116/70 09/11/24 07:53 Pulse Ox 100 09/11/24 07:53 O2 Del Method Room Air 09/11/24 07:53 Allergies Allergy/AdvReac Type Severity Reaction Status Date / Time Penicillins Allergy Unknown Swelling Verified 09/11/24 07:50 Home Medications ?Medication ?Instructions ?Recorded ?Confirmed ?Type nebivolol 10 mg tablet (Bystolic) 10 mg PO . b.i.d. 04/30/20 09/11/24 History hydralazine 100 mg tablet 100 mg PO TID #270 tabs 02/24/21 09/11/24 Rx cholecalciferol (vitamin D3) 50 2,000 unit PO DAILY 09/14/22 09/11/24 History mcg (2,000 unit) capsule cyanocobalamin (vitamin B-12) 1,000 mcg PO DAILY 09/14/22 09/11/24 History 1,000 mcg tablet threonine 500 mg capsule (Pure 500 mg PO DAILY 09/14/22 09/11/24 History L-Threonine) atorvastatin 20 mg tablet 20 mg PO DAILY 02/23/23 09/11/24 History losartan 100 mg tablet 100 mg PO DAILY 02/23/23 09/11/24 History levothyroxine 112 mcg tablet 112 mcg PO DAILY #30 tabs 10/04/23 09/11/24 Rx zolpidem 10 mg tablet 10 mg PO .qhs PRN insomnia #30 tabs 07/04/24 08/25/24 Rx ascorbic acid (vitamin C) 1,000 mg 1,000 mg PO DAILY 08/25/24 09/11/24 History tablet,extended release (C Complex) biotin 1 mg capsule 1 mg PO DAILY 08/25/24 09/11/24 History lactobacillus combination no.9 4 4,000 mmu cells PO DAILY 08/25/24 09/11/24 History billion cell capsule (Adult 50 Plus Probiotic) magnesium 250 mg tablet 250 mg PO DAILY 08/25/24 09/11/24 History Patient hx anesthesia problems: none Family hx anesthesia problems: none Results Review: All pre-operative results and documents have been reviewed as part of the pre-operative evaluation. [facility] Past Medical History Medical History Colon cancer screening BMI 28.0-28.9,adult Overweight (BMI 25.0-29.9) Perimenopause Normal hormone levels on 04/10/2022 with estrogen 218.7 and FSH and LH normal with testosterone normal. Hormone levels are normal on 09/06/2023 with estradiol 460, FSH 3.0, LH 8.7, testosterone 28. Acute non-recurrent maxillary sinusitis Chronic left-sided low back pain without sciatica (02/24/21) Moderate degenerative disc disease L3-L4 on x-ray 02/24/2021 BMI 29.0-29.9,adult Anemia Hemoglobin 12.1 with hematocrit 36.1 on 09/01/2021 with iron 72, vitamin B12 469 and folic acid 19.9. Hemoglobin 12.1 with hematocrit 35.8 with iron 84 with 26% saturation and ferritin 32 with vitamin B12 567 and folic acid 19.6 on 04/02/2022. hemoglobin 12.0 with normal iron, vitamin B12, folic acid. Tension headache, chronic Right-sided cerebrovascular accident (CVA) Vitamin B12 deficiency anemia level normal at 469 on 09/01/2021. Level normal at 507 on 04/02/2022. Level normal at 1878 with folic acid 10.4 and hemoglobin 12.0. Vitamin D insufficiency 71 on 09/01/2021. Level normal at 61.9 on 04/02/2022. Normal at 44.8 on 09/06/2023 point PFO (patent foramen ovale) COVID-19 virus detected Body mass index (bmi) 27.0-27.9, adult (05/08/19) Elevated liver enzymes AST 20 and ALT 13 on 09/01/2021 Surgical History Surgical History History of aortic valve replacement with tissue graft Social History Social History Smoking status: Never smoker Alcohol intake: never Substance use: current Substance use type: marijuana Other substance usage details: Occasional marijuana pen Current Housing: Decline to Answer Concerned About Future Housing: Decline to Answer Difficulty Paying Gas/Electric Bills: Decline to Answer Difficulty Paying for Meds: Decline to Answer Currently Unemployed: Decline to Answer Education: Decline to Answer Difficulty w/ Childcare or Family Care: Decline to Answer Living arrangements: with family Spiritual care concerns: No Comments h/o AVR, AAA repair, CVA with left sided weakness Anes - Eval Final PreProcedure Day of Procedure 09/11/24 08:00 Patient weight: normal Heart: regular rate and rhythm Lungs: normal air movement Airway: Mallampati scale class II Neurological: alert and oriented Last oral intake: >/= 8 hours ASA classification: III Emergent: no Anesthetic plan: proceed Anesthesia type and monitoring: general GIVS and standard monitoring Results Review: All pre-operative results and documents have been reviewed as part of the pre-operative evaluation. Informed Consent: The patient's anesthetic plan and its attendant risks and benefits were discussed with the patient/family/POA. Questions were solicited and answers provided to the satisfaction of the patient/family/POA.
--- NOTE | 2024-09-11 08:33 | P.HP_ITS ---
History of Present Illness History of Present Illness Consent: Risks, benefits, and alternatives have been discussed and questions answered. Patient agrees to proceed with procedure. Chief complaint: screening malignant neoplasm colon Narrative: Kaity Mazariegos is a 49 year old female here for first screening colonoscopy Review of Systems Review of Systems: All systems reviewed & are unremarkable except as noted in HPI and below PMFSH Past Medical History Medical History Colon cancer screening BMI 28.0-28.9,adult Overweight (BMI 25.0-29.9) Perimenopause Normal hormone levels on 04/10/2022 with estrogen 218.7 and FSH and LH stefania l with testosterone normal. Hormone levels are normal on 09/06/2023 with estradiol 460, FSH 3.0, LH 8.7, testosterone 28. Acute non-recurrent maxillary sinusitis Chronic left-sided low back pain without sciatica (02/24/21) Moderate degenerative disc disease L3-L4 on x-ray 02/24/2021 BMI 29.0-29.9,adult Anemia Hemoglobin 12.1 with hematocrit 36.1 on 09/01/2021 with iron 72, vitamin B12 469 and folic acid 19.9. Hemoglobin 12.1 with hematocrit 35.8 with iron 84 with 26% saturation and ferritin 32 with vitamin B12 567 and folic acid 19.6 on 04/02/2022. hemoglobin 12.0 with normal iron, vitamin B12, folic acid. Tension headache, chronic Right-sided cerebrovascular accident (CVA) Vitamin B12 deficiency anemia level normal at 469 on 09/01/2021. Level normal at 507 on 04/02/2022. Level normal at 1878 with folic acid 10.4 and hemoglobin 12.0. Vitamin D insufficiency 71 on 09/01/2021. Level normal at 61.9 on 04/02/2022. Normal at 44.8 on 09/06/2023 point PFO (patent foramen ovale) COVID-19 virus detected Body mass index (bmi) 27.0-27.9, adult (05/08/19) Elevated liver enzymes AST 20 and ALT 13 on 09/01/2021 Surgical History Surgical History History of aortic valve replacement with tissue graft Social History Social History Smoking status: Never smoker Alcohol intake: never Substance use: current Substance use type: marijuana Other substance usage details: Occasional marijuana pen Current Housing: Decline to Answer Concerned About Future Housing: Decline to Answer Difficulty Paying Gas/Electric Bills: Decline to Answer Difficulty Paying for Meds: Decline to Answer Currently Unemployed: Decline to Answer Education: Decline to Answer Difficulty w/ Childcare or Family Care: Decline to Answer Living arrangements: with family Spiritual care concerns: No Meds Home Medications and Allergies Home Medications ?Medication ?Instructions ?Recorded ?Confirmed ?Type nebivolol 10 mg tablet (Bystolic) 10 mg PO . b.i.d. 04/30/20 09/11/24 History hydralazine 100 mg tablet 100 mg PO TID #270 tabs 02/24/21 09/11/24 Rx cholecalciferol (vitamin D3) 50 2,000 unit PO DAILY 09/14/22 09/11/24 History mcg (2,000 unit) capsule cyanocobalamin (vitamin B-12) 1,000 mcg PO DAILY 09/14/22 09/11/24 History 1,000 mcg tablet threonine 500 mg capsule (Pure 500 mg PO DAILY 09/14/22 09/11/24 History L-Threonine) atorvastatin 20 mg tablet 20 mg PO DAILY 02/23/23 09/11/24 History losartan 100 mg tablet 100 mg PO DAILY 02/23/23 09/11/24 History levothyroxine 112 mcg tablet 112 mcg PO DAILY #30 tabs 10/04/23 09/11/24 Rx zolpidem 10 mg tablet 10 mg PO .qhs PRN insomnia #30 tabs 07/04/24 08/25/24 Rx ascorbic acid (vitamin C) 1,000 mg 1,000 mg PO DAILY 08/25/24 09/11/24 History tablet,extended release (C Complex) biotin 1 mg capsule 1 mg PO DAILY 08/25/24 09/11/24 History lactobacillus combination no.9 4 4,000 mmu cells PO DAILY 08/25/24 09/11/24 History billion cell capsule (Adult 50 Plus Probiotic) magnesium 250 mg tablet 250 mg PO DAILY 08/25/24 09/11/24 History Allergies Allergy/AdvReac Type Severity Reaction Status Date / Time Penicillins Allergy Unknown Swelling Verified 09/11/24 07:50 Vital Signs Vital Signs - 24 hr 09/11/24 07:53 Temperature 97 F L Pulse Rate 60 Respiratory Rate 18 Blood Pressure 116/70 Pulse Oximetry 100 Oxygen Delivery Room Air Exam Const: General: comfortable and no acute distress HENMT: Face/Nose/Sinus: Normal nares present Eyes: General: appearance normal, both eyes and all related structures Neck: Neck: no JVD Resp: Auscultation: clear to auscultation bilaterally Cardio: Rate: regular rate Rhythm: regular rhythm GI: Inspection: non-distended GI Palp: Yes Soft to palpation Skin: General skin exam: normal color Neuro: General: gait normal Speech: normal speech Extrem: General: normal to inspection Psych: Mental Status: mental status grossly normal Assessment and Plan Assessment and plan (1) Colon cancer screening: Code(s): Z12.11 - Encounter for screening for malignant neoplasm of colon Status: Acute Assessment and Plan: colonoscopy
[2024-09-11 08:59] VITALS: BP 101/70; PULSE 53; RESP 15; O2SAT 100
[2024-09-11] MEDS: LACTATED RINGERS 1,000 ML 150 ML IV CONT (09:00)
[2024-09-11 09:09] VITALS: BP 124/62; PULSE 48; RESP 14; O2SAT 100
[2024-09-11 09:19] VITALS: BP 142/63; PULSE 49; RESP 16; O2SAT 99
[2024-09-11 13:36] LABS: BEDSIDEPREGUCG Negative (Negative)
== END 2024-09-11 09:41 | disposition home or self-care (01) ==
PROVIDERS: PCP Family Medicine; Visit Provider Internal Medicine Gastroenterology
PROC: 0DJD8ZZ Inspection of Lower Intestinal Tract, Via Natural or Artificial Opening Endoscopic (ICD-10-PCS; CPT 45378; principal; 2024-09-11 08:30)
DX: Z12.11 Encounter for screening for malignant neoplasm of colon (principal); K64.8 Other hemorrhoids; F12.90 Cannabis use, unspecified, uncomplicated
CPT/HCPCS: 45378; J0690; J2003; J2704; J3370; J7120

== ENCOUNTER 2025-05-03 15:37 | Outpatient (CLI) | payer OTHER, SELFPAY ==
--- NOTE | ~2025-05-03 | MM_ITS ---
EXAMINATION: MM screening hero BI w pauline HISTORY: Screening TECHNIQUE: Craniocaudal and mediolateral oblique 3-D tomosynthesis images were obtained and synthetic 2-D images were generated. CAD analysis was submitted and interpreted. COMPARISON: Comparison to multiple prior studies sequentially, with oldest reviewed study dated , 12/28/2018 BREAST PARENCHYMAL COMPOSITION: There are scattered areas of fibroglandular density. FINDINGS: There is no evidence of suspicious mass, calcification, or architectural distortion to suggest malignancy in either breast. IMPRESSION: 1. No mammographic evidence of malignancy. 2. Recommend routine screening mammography in one year. BI-RADS Category 1: Negative Reviewed, dictated and finalized at location B.
== END 2025-05-03 15:38 | disposition home or self-care (01) ==
LOC: MICIMG 15:38
PROVIDERS: PCP Obstetrics & Gynecology; Visit Provider Obstetrics & Gynecology
DX: Z12.31 Encounter for screening mammogram for malignant neoplasm of breast (principal)
CPT/HCPCS: 77063; 77067